=== PATIENT | female | born 1955 | race Caucasian/White ===

== ENCOUNTER → 2018-09-25 14:08 | Outpatient (BNVA) | payer MEDICARE, BC, SELFPAY | PROVIDERS: Referring Provider Nurse Practitioner Family; Visit Provider Orthopaedic Surgery | DX: S80.12XA Contusion of left lower leg, initial encounter (principal); X58.XXXA Exposure to other specified factors, initial encounter; M72.0 Palmar fascial fibromatosis [Dupuytren]; Z79.82 Long term (current) use of aspirin | CPT/HCPCS: 99211; 99213 ==

== ENCOUNTER 2018-10-24 12:35 | Outpatient (CLI) | payer MEDICARE, BC, SELFPAY ==
--- NOTE | 2018-10-24 10:49 | DI.RAD_ITS ---
SYMPTOMS/DIAGNOSIS: CONTINUED KNEE PAIN, S/P FALL, SWELLING LEFT KNEE: Three views were obtained. There appears to be soft tissue swelling over the patella. No fracture is identified.
== END 2018-10-24 12:55 ==
PROVIDERS: Visit Provider Orthopaedic Surgery
DX: M25.562 Pain in left knee (principal); S80.10XA Contusion of unspecified lower leg, initial encounter; W01.0XXA Fall on same level from slipping, tripping and stumbling without subsequent striking against object, initial encounter
CPT/HCPCS: 73562

== ENCOUNTER → 2018-10-29 09:22 | Outpatient (BNVA) | payer MEDICARE, BC, SELFPAY ==
--- NOTE | 2018-11-10 14:52 | IN_ITS ---
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 Patient was diagnosed with contusion of lower leg without any internal derangement found by orthopedic surgeon during most recent orthopedic follow up on 10/29/2018. 4 weeks prior to orthopedic follow up, patient seemed to have added insult to injury when she had to crawl on the floor to unplug 's CPAP machine. She reported increased pain and swelling which prompted patient to seek follow up with referring MD. Radiographic imaging of left knee showed negative for fracture. Patient also reports that she has been significantly busy at home and has been spending a lot of time in standing which may have slowed down resolution of symptoms. Today, patient presents with mild pain and almost resolved erythema to L ankle/dorsum of foot that are accompanied with mild to moderate non-pitting edema. PMHx: Medical Histroy Hyperlipidemia Hypertension Raynaud's disease Surgical History: Appendectomy Carpal tunnel Tonsillectomy Falls in the last year: Yes Reported hospitalizations in the last year: Yes Subjective: Patient reports mild pain on L ankle and foot aggravated with movement and weight-bearing. She states that said symptoms have limited her ability to move about in the house and to work in her garden. She states that weeding her garden has become the most challenging. She does state that pain and swelling have subsided but feels that they are taking a long time to fully resolve. She is agreeable to PT's recommendation of three sessions of manual lymphatic drainage to L LE, use of knee-high compression legging on the L side, and to doing remedial exercises to displace excess fluid accumulation off of the L foot and ankle. She states she has a lot more to do in the coming weeks and hopes that she can do so without any more difficulty. Prior Level of Function: Independent with all aspects of ADLs without the need for an assistive ambulatory device. Current Level of Function: Independent with all aspects of ADLs without the need for an assistive ambulatory device. Previous Treatment: None Social History/Home Situation: Patient lives with in a private home in [place], [place]. 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 DME: None Medications: Percocet Quality of Life: Good Standardized Measures: Lower Extremity Functional Scale (LEFS): 73/80 Objective: Posture: mild thoracic painkyphosis Observation: Mild erythema (almost resolved), swelling on L ankle and foot Palpation: Tone/hypertrophy: Unremarkable Atrophy: None Tenderness/Pain: L ankle and foot Scars: well-healed scar CT release scar Edema: Girth measurement done in cm R L Around MTP 23.7 23.2 Around arch of foot 23.2 23.5 Around heel 31 32.1 Smallest of ankle 22.4 24.8 5 cm above lat mal 23.3 10 cm above lat mal 22.7 Largest calf 36.4 2 inches below patellar apex 33.3 Length of leg 40 ROM: Right Upper Extremity: Shoulder Flexion WFL. Shoulder abduction WFL. Elbow flexion WFL. Wrist flexion WFL. Functional opening and closing of hand WFL. Left Upper Extremity: Shoulder Flexion WFL. Shoulder abduction WFL. Elbow flexion WFL. Wrist flexion WFL. Functional opening and closing of hand WFL. Right Lower Extremity: Hip flexion WFL. Hip abduction WFL. Knee flexion WFL. Ankle dorsiflexion WFL. Ankle plantarflexion WFL. Left Lower Extremity: Hip flexion WFL. Hip abduction WFL. Knee flexion WFL. Ankle dorsiflexion WFL but with mild pain at end of range. Ankle plantarflexion WFL but with mild pain at end of range. Strength: Right Upper Extremity: Shoulder flexors 5/5. Shoulder abductors 5/5. Elbow flexors 5/5. Elbow extensors 5/5. Local Government Legislator strong. Left Upper Extremity: Shoulder flexors 5/5. Shoulder abductors 5/5. Elbow flexors 5/5. Elbow extensors 5/5. Local Government Legislator strong. Right Lower Extremity: Hip flexors 5/5. Hip abductors 5/5. Knee flexors 5/5. Knee extensors 5/5. Ankle dorsiflexors 5/5. Ankle plantarflexors 5/5. Left Lower Extremity:Hip flexors 5/5. Hip abductors 5/5. Knee flexors 5/5. Knee extensors 5/5. Ankle dorsiflexors 4/5. Ankle plantarflexors 4/5. Sensation: Intact as to pain impression on BUE Special Tests Stemmer Sign: Negative ASSESSMENT: Patient with secondary lymphedema to left ankle and foot due to mechanical limitation exerted on the lymphatic and vascular flow placed by the presence of contusion to left knee with patient demonstrating the following impairment level findings: 1. Decreased strength to L ankle muscle groups 2. Impaired standing balance 3. Impaired activity tolerance Patient requires skilled PT intervention to remediate the above functional limitations to improve functional mobility and improve quality of life. Impairments are contributing to the following functional limitations: 1. Increase completion time for mobility ADL performance 2. Increased fall risk Patient is assessed as a [id number] low complexity based on the following: History: 63-year-old female with secondary lymphedema to left foot with past medical history as indicated above Examination: Underlying impairments and functional limitations as noted above Presentation: Evolving Decision Makin low complexity [X] Patient requires skilled PT intervention to remediate the above functional limitations to: [X] Improve functional mobility [X] Improve quality of life [] Patient does not required skilled PT intervention Goals: STG: after 1 sessions 1. Patient will be independent with skin care and hygiene. 2. Patient will be independent with elevation of the right LE for more than 30 minutes per day. 3. Patient will be independent with self-manual lymphatic drainage. 4. Patient will be independent with lymphedema home exercise program. 5. Patient will demonstrate resolution of pain and swelling to regain normal muscle strength in order to return to prior level of function. LTG: after 3 sessions 1. Patient will be independent with use of compression wraps or garments. 2. Patient will have decrease in edema of 1at least cm. 3. Patient will be independent with self-management program for lymphedema. Lymphedema Intervention Provided: 1. Skin care and hygiene: Advised about continuing with skin hygiene/care 2. Manual lymphatic drainage: MLD provided to L LE for this session 3. Compression: Trialled 15-20 mmHg knee-high compression legging to L side to be worn during the day and taken off at night 4. Exercise and elevation: Initiated with ankle dorsiflexion and plantarflexion today 5. Patient education: Instructed on the improtance of use of compression garments and on allowing extremity elevation at least 30 minutes a day Treatment code/time: 65624 x30 minutes, 79038 x 44 minutes beginning at 13:32 PM. Thank you for this referral. Please do not hesitate to contact me with any questions or concerns regarding this patient's plan of care. Tammy Bunch, PT, DPT, CLT [facility]
== END ==
PROVIDERS: Visit Provider Orthopaedic Surgery
DX: S80.12XA Contusion of left lower leg, initial encounter (principal); W01.0XXA Fall on same level from slipping, tripping and stumbling without subsequent striking against object, initial encounter; M25.562 Pain in left knee
CPT/HCPCS: 99211; 99213

== ENCOUNTER → 2019-04-27 13:18 | Outpatient (BNVA) | payer MEDICARE, BC, SELFPAY | PROVIDERS: PCP Nurse Practitioner Family; Referring Provider Nurse Practitioner Family; Visit Provider Student in an Organized Health Care Education/Training Program | DX: M77.11 Lateral epicondylitis, right elbow (principal); M75.21 Bicipital tendinitis, right shoulder | CPT/HCPCS: 20550; 99214; J1030 ==

== ENCOUNTER 2019-08-24 11:27 | Outpatient (CLI) | payer MEDICARE, BC, SELFPAY ==
--- NOTE | 2019-08-24 10:00 | DI.RAD_ITS ---
EXAM: XR KNEE RT 4V AP,LAT,ALICE,PAT CLINICAL HISTORY: right knee pain. TECHNIQUE: 2D digital imaging was performed. COMPARISON: CR XR knee LT 3V AP,lat,alice from 10/24/2018 FINDINGS: There is periarticular spurring of the posterior patella. The bones are normally mineralized and int act. No acute fracture or dislocation is seen no joint effusion is present. The soft tissues are un remarkable. IMPRESSION: Mild degenerative changes of the right knee. DATA REPOSITORY: RADIATION DOSE DELIVERED:
== END 2019-08-24 11:47 ==
PROVIDERS: PCP Nurse Practitioner Family; Referring Provider Nurse Practitioner Family; Visit Provider Student in an Organized Health Care Education/Training Program
DX: M25.561 Pain in right knee (principal); M17.11 Unilateral primary osteoarthritis, right knee; M77.12 Lateral epicondylitis, left elbow; Z98.890 Other specified postprocedural states
CPT/HCPCS: 99213; 73564

== ENCOUNTER → 2019-10-05 09:12 | Outpatient (BNVA) | payer MEDICARE, BC, SELFPAY | PROVIDERS: PCP Nurse Practitioner Family; Referring Provider Nurse Practitioner Family; Visit Provider Student in an Organized Health Care Education/Training Program | DX: M25.561 Pain in right knee (principal); M77.12 Lateral epicondylitis, left elbow; M77.11 Lateral epicondylitis, right elbow | CPT/HCPCS: 20605; 99214; J1030; L3908 ==

== ENCOUNTER 2019-12-07 11:18 | Outpatient (CLI) | payer MEDICARE, BC, SELFPAY ==
--- NOTE | 2019-12-07 10:45 | DI.RAD_ITS ---
EXAM: XR HIP LT COMPLETE AP PELVIS CLINICAL HISTORY: L hip pain. TECHNIQUE: 2D digital imaging was performed. COMPARISON: No exams were available for comparison FINDINGS: BONES: No acute fracture is present. No bony destructive lesion is seen. JOINTS: No dislocation present. SOFT TISSUE: Vascular calcifications are present. IMPRESSION: No acute abnormality. DATA REPOSITORY: RADIATION DOSE DELIVERED:
== END 2019-12-07 11:38 ==
PROVIDERS: PCP Nurse Practitioner Family; Referring Provider Nurse Practitioner Family; Visit Provider Student in an Organized Health Care Education/Training Program
DX: M25.552 Pain in left hip (principal)
CPT/HCPCS: 99214; 73502

== ENCOUNTER 2019-12-10 02:06 | Outpatient (CLI) | payer MEDICARE, BC, SELFPAY ==
--- NOTE | 2019-12-10 12:35 | DI.RAD_ITS ---
EXAM: RF JOINT INJECTION FLUORO GUID CLINICAL HISTORY: L HIP INJ UNDER FLUORO,lt hip pain,m25.552 TECHNIQUE: 2D and realtime digital imaging was performed. CONTRAST MATERIAL: Water soluble contrast was administered. COMPARISON: No exams were available for comparison FINDINGS: Fluoroscopy was provided for Dr. Mckay during the performance of a left hip 155 . Please refer t o the procedure report for complete details. Fluoro time: 15 sec
[2019-12-10] MEDS: Omnipaque 300 MG/ML 10 ML BTL IJ (12:54)
[2019-12-10] MEDS: Bupivacaine 0.5% Pres-Free 10 ML VIAL 6 ML IJ (12:56)
[2019-12-10] MEDS: methylPREDNISolone ACETATE 80 MG/ML VIAL IM (12:57)
--- NOTE | 2019-12-10 14:05 | W.PROCNOTE ---
Date of service: 12/10/19 Time of Service: 14:05 Procedure Note Date of procedure: 12/10/19 Procedure: Left Hip Injection with Fluoroscopic Guidance Surgeon/Proceduralist/Physician: Scott Mckay Procedure Diagnosis: Left Hip Osteoarthritis Procedure Indications: Ca has had persistent pain of the LEFT hip and groin. Noninvasive measures have been tried. To serve as both diagnostic and therapeutic, an injection under fluoroscopy was recommended. I had discussed the risks of the procedure and the patient elected to proceed. Procedure Description: Ca was greeted in the flouroscopy room. The correct side was identified and the consent was reviewed with the patient and signed. The patient was then placed in the supine position on the fluoroscopy table. The LEFT hip was then prepped with Chloraprep. The anterolateral injection starting point was identiifed by bony landmarks and fluoroscopy. The skin and soft tissue in the tract of the injection was anesthetized with 1% Lidocaine. A spinal needle was then inserted deep into the hip joint at the level of the lateral femoral neck under fluoroscopic guidance. A small amount of Omnipaque solution was injected to confirm intraarticular placement. Once confirmed, the hip was injected with 6cc of 0.5% Bupivicaine and 80mg of Depo-Medrol. A bandaid was placed on the injection site. The patient tolerated the procedure well and noted improvement in pre-injection pain.
== END 2019-12-10 02:26 ==
PROVIDERS: PCP Nurse Practitioner Family; Visit Provider Student in an Organized Health Care Education/Training Program
DX: M25.552 Pain in left hip (principal); M16.12 Unilateral primary osteoarthritis, left hip
CPT/HCPCS: 20610; 77002; J1040

== ENCOUNTER 2019-12-29 12:01 | Emergency (ER) | payer MEDICARE, BC, SELFPAY ==
[2019-12-29 12:07] VITALS: BP 160/86; PULSE 76; RESP 16; TEMP 36.6; O2SAT 98
--- NOTE | 2019-12-29 12:15 | DI.RAD_ITS ---
EXAM: XR KNEE LT 3V AP,LAT,ALICE CLINICAL HISTORY: Fall, R/O fracture. TECHNIQUE: 2D digital imaging was performed. COMPARISON: CR XR KNEE RT 4V AP,LAT,ALICE,PAT from 08/24/2019 FINDINGS: BONES: No acute fracture is present. No bony destructive lesion is seen. JOINTS: The knee is normally aligned. Mild degenerative changes. SOFT TISSUE: There is mild anterior soft tissue swelling question of a small joint effusion. IMPRESSION: No acute abnormality.. DATA REPOSITORY: RADIATION DOSE DELIVERED:
--- NOTE | 2019-12-29 12:15 | DI.RAD_ITS ---
EXAM: XR RIBS RT W PA LAT CHEST CLINICAL HISTORY: Fall, R/o fracture TECHNIQUE: 2D digital imaging was performed. COMPARISON: CR RIBS BILATERAL TO INCLUDE CXR from 05/10/2010 FINDINGS: The heart size is normal. The aorta is tortuous. The lungs are well inflated and clear. No infiltr ate, effusion or pneumothorax is seen. No acute spine or rib fracture is identified. There are old right lower rib fractures, seen on the previous exam. Degenerative disc changes are seen in the spin e. IMPRESSION: Old right lower rib fractures. No acute abnormality.
--- NOTE | 2019-12-29 12:15 | DI.RAD_ITS ---
EXAM: XR LUMBAR SPINE COMPLETE CLINICAL HISTORY: Fall. TECHNIQUE: 2D digital imaging was performed. COMPARISON: CR RIBS BILATERAL TO INCLUDE CXR from 05/10/2010 CR XR RIBS RT W PA LAT CHEST from 12/29/2019 FINDINGS: There is narrowing of the T11-12 disc space and prominent osteophytes projecting anteriorly. There i s mild disc space narrowing at L2-3 through L5-S1. There are facet degenerative changes greatest at L4-5 causing mild L5-S1 spondylolisthesis. No acute fractures are seen. There is a mild upper lumba r scoliosis. Degenerative changes are seen in the SI joints. There is calcification in the aorta wh ich is normal in diameter. IMPRESSION: Degenerative changes. No acute abnormality. DATA REPOSITORY: RADIATION DOSE DELIVERED:
--- NOTE | 2019-12-29 12:34 | ED.GENADUL_ITS ---
Discharge Plan Disposition Patient Disposition: HOME Condition: Stable Discharge Details Clinical Impression: Fall (on) (from) other stairs and steps, initial encounter, Left knee sprain, Chest wall contusion Primary Care Provider: Yi Mcintyre ED Provider: Jeannie Mejia Home Meds and New Rx's Prescriptions: Continued gabapentin 300 mg capsule 300 mg PO QHS Qty: 14 RF: 0 tramadol 50 mg tablet 50 mg PO BID PRN (Reason: pain) Qty: 14 RF: 0 atorvastatin [Lipitor] 40 MG tablet 40 mg PO DAILY RF: 0 ascorbic acid (vitamin C) [Vitamin C] 1,000 MG tablet 1 tab PO DAILY RF: 0 calcium carbonate [Calcium 500] 500 MG tablet 1,000 mg PO DAILY RF: 0 estradiol 0.5 MG tablet 0.5 mg PO DAILY RF: 0 Fish Oil 1 EACH capsule,delayed release(DR/EC) 1 tab PO DAILY RF: 0 Fiber 6 1,000 MG tablet 1 tab PO DAILY RF: 0 Cyanocobalamin (Vitamin B-12) [Vitamin B-12] 1,000 MCG capsule 1 cap PO DAILY RF: 0 Topiramate [Trokendi Xr] 50 MG Cap.Er.24h 50 mg PO DAILY RF: 0 aspirin [Aspir-81] 81 mg tablet,delayed release (DR/EC) 81 mg PO .QOD RF: 0 propranolol 40 mg tablet 20 mg PO BID RF: 0 progesterone micronized [Prometrium] 200 mg capsule 100 mg PO DAILY RF: 0 Discharge Instructions Instructions: Knee Sprain (ED), Contusion in Adults (ED) Additional Instructions: Follow up with primary care provider in 3-5 days. Return to ED sooner if any worsening or concerns. Increase oral fluids. Please take Tylenol or Ibuprofen with food every 4-6 hours as needed for pain and swelling. Use splint as directed, rest, ice, compression, elevation. Return for increased shortness of breath or any concerns. May follow-up with orthopedics within 1 to 2 weeks if continued pain. [facility]: Referrals: Yi Mcintyre [Primary Care Provider] - Discharge Data Discharge Date/Time-TO BE ENTERED AT DEPARTURE: 12/29/19 14:00 Medical Decision Making 64-year-old female presents to the ED with chief complaint of left knee pain, lower lumbar tenderness after a fall down approximately 5 stairs at 7:30 PM last night. Patient did hit the back of her head and has a small hematoma noted to her right parietal scalp, she denies any loss of consciousness no C-spine no midline T-spine tenderness. She does have some swelling noted to the left knee, she does have multiple contusions noted to her arms, she has a contusion noted to the posterior right rib cage and is tender with palpation over the area. She does take baby aspirin daily. CLINICAL HISTORY: Fall, R/O fracture. TECHNIQUE: 2D digital imaging was performed. COMPARISON: CR XR KNEE RT 4V AP,LAT,ALICE,PAT from 08/24/2019 FINDINGS: BONES: No acute fracture is present. No bony destructive lesion is seen. JOINTS: The knee is normally aligned. Mild degenerative changes. SOFT TISSUE: There is mild anterior soft tissue swelling question of a small joint effusion. IMPRESSION: No acute abnormality.. TECHNIQUE: 2D digital imaging was performed. COMPARISON: CR RIBS BILATERAL TO INCLUDE CXR from 05/10/2010 CR XR RIBS RT W PA LAT CHEST from 12/29/2019 FINDINGS: There is narrowing of the T11-12 disc space and prominent osteophytes projecting anteriorly. There is mild disc space narrowing at L2-3 through L5-S1. There are facet degenerative changes greatest at L4-5 causing mild L5-S1 spondylolisthesis. No acute fractures are seen. There is a mild upper lumbar scoliosis. Degenerative changes are seen in the SI joints. There is calcification in the aorta which is normal in diameter. IMPRESSION: Degenerative changes. No acute abnormality. EXAM: XR RIBS RT W PA LAT CHEST CLINICAL HISTORY: Fall, R/o fracture TECHNIQUE: 2D digital imaging was performed. COMPARISON: CR RIBS BILATERAL TO INCLUDE CXR from 05/10/2010 FINDINGS: The heart size is normal. The aorta is tortuous. The lungs are well inflated and clear. No infiltrate, effusion or pneumothorax is seen. No acute spine or rib fracture is identified. There are old right lower rib fractures, seen on the previous exam. Degenerative disc changes are seen in the spine. IMPRESSION: Old right lower rib fractures. No acute abnormality. Discussed x-ray results with patient who verbalized understanding. Discussed taking Tylenol and ibuprofen as directed. Follow-up with orthopedics if any worsening. HPI General Mode of arrival: wheelchair . Date/Time Provider Initiated Documentation: 12/29/19 12:07 . Limitations to Documentation: no limitations . Information obtained by: patient . HPI Narrative: 64-year-old female presents to the ED with chief complaint of left knee pain, lower lumbar tenderness after a fall down approximately 5 stairs at 7:30 PM last night. Patient did hit the back of her head and has a small hematoma noted to her right parietal scalp, she denies any loss of consciousness no C-spine no midline T-spine tenderness. She does have some swelling noted to the left knee, she does have multiple contusions noted to her arms, she has a contusion noted to the posterior right rib cage and is tender with palpation over the area. She does take baby aspirin daily. Related Data Home Medications Medication Instructions Recorded Confirmed Cyanocobalamin (Vitamin B-12) 1 cap PO DAILY 06/04/17 12/29/19 [Vitamin B-12] Fiber 6 1 tab PO DAILY 06/04/17 12/29/19 Fish Oil 1 tab PO DAILY 06/04/17 12/29/19 Topiramate [Trokendi Xr] 50 mg PO DAILY 06/04/17 12/29/19 ascorbic acid (vitamin C) [Vitamin 1 tab PO DAILY 06/04/17 12/29/19 C] atorvastatin [Lipitor] 40 mg PO DAILY 06/04/17 12/29/19 calcium carbonate [Calcium 500] 1,000 mg PO DAILY 06/04/17 12/29/19 estradiol 0.5 mg PO DAILY 06/04/17 12/29/19 aspirin 81 mg tablet,delayed 81 mg PO .QOD tab 04/27/19 12/29/19 release propranolol 40 mg tablet 20 mg PO BID tab 04/27/19 12/29/19 gabapentin 300 mg capsule 300 mg PO QHS #14 cap 12/07/19 12/29/19 progesterone micronized 200 mg 100 mg PO DAILY cap 12/07/19 12/29/19 capsule tramadol 50 mg tablet 50 mg PO BID PRN #14 tab 12/07/19 12/29/19 Previous Rx's Medication Instructions Recorded gabapentin 300 mg capsule 300 mg PO QHS #14 cap 12/07/19 tramadol 50 mg tablet 50 mg PO BID PRN #14 tab 12/07/19 Allergies Allergy/AdvReac Type Severity Reaction Status Date / Time oxycodone Allergy Mild Hives Unverified 12/29/19 12:15 oxycodone HCl [From Percocet] Allergy Mild Hives Unverified 12/29/19 12:15 General Stated Complaint: Trauma JORDAN: 3 Review of Systems Narrative: Constitutional: Negative for weight loss, alert and oriented, well groomed, normal body habitus, appears comfortable. HEENT: Denies trauma, headaches, blurry vision, nasal discharge, sore throat, trouble swallowing. Chest: Denies chest pain, palpitations, irregular rhythm, hypertension. Respiratory: Denies Shortness of breath, cough, hemoptysis. GI: Denies abdominal pain, nausea, vomiting, diarrhea, constipation. Musculoskeletal: As noted in HPI, complaining of lower lumbar tenderness, right- sided rib pain, left knee pain. : Denies dysuria, hematuria, flank pain, rectal bleeding. Neuro: Denies dizziness, blurry vision, weakness, syncope, headache or facial numbness. Hematologic: Denies easy bruising, intolerance to heat or cold, hair loss. [facility] Medical History (Updated 12/29/19 @ 13:44 by Jeannie Mejia) Lateral epicondylitis of left elbow Patellofemoral arthritis of right knee Social History Smoking/Tobacco Use Status: Current every day Alcohol Intake: current Alcohol Intake frequency: 3 or more drinks per day Alcohol type: wine Drug use: Never Substance use type: does not use Current gender identity: female Do you feel safe in your relationship?: Yes Additional Social history: pt unable to assess privately Exam Narrative Exam Narrative: Constitutional: Alert and oriented x3. Appears stated age. Normal body habitus. Head: Normocephalic, no trauma. Eyes: Pupils PERRLA, Red reflex noted, EOM's intact. Eyelids symmetrical without lesions, discharge, or swelling. ENT: Bilateral TM's WNL, External ear normal to inspection, no mastoid TTP, swelling, or erythema, Nasal turbinates WNL, no nasal discharge. Normal dentition, Posterior pharynx WNL, no exudate. Chest: RRR, Normal S1, S2, distal pulses intact. Resp: Lungs clear to auscultation bilaterally, no wheezes, rales, or rhonchi. Musculoskeletal: Left knee tenderness, positive swelling noted, lower lumbar tenderness with palpation, right rib cage tenderness. Skin: Capillary refill less than 2 sec. Neurologic: Cranial nerves II-XII intact. Alert and oriented x 3. DTR's intact. Hematologic/Lymphatic: No ecchymosis, no lymphadenopathy. Course Vital Signs Vital signs: Vital Signs Temperature 36.6 C 12/29/19 12:07 Pulse 76 12/29/19 12:07 Respiratory Rate 16 12/29/19 12:07 Blood Pressure 160/86 H 12/29/19 12:07 Pulse Oximetry 98 12/29/19 12:07 Temperature 36.6 C 12/29/19 12:07 Temperature Source Skin 12/29/19 12:07 Pulse 76 12/29/19 12:07 Respiratory Rate 16 12/29/19 12:07 Respiratory Effort Non-Labored 12/29/19 12:27 Respiratory Depth Normal 12/29/19 12:27 Respiratory Pattern Normal 12/29/19 12:27 Blood Pressure 160/86 H 12/29/19 12:07 Blood Pressure Position Sitting 12/29/19 12:07 Pulse Oximetry 98 12/29/19 12:07 Oxygen Delivery Method Room Air 12/29/19 12:07 Oxygen Flow Rate 0 12/29/19 12:07 Pain Level 10 12/29/19 12:27
[2019-12-29] MEDS: Cyclobenzaprine 10 MG TAB PO (12:38)
[2019-12-29] MEDS: Acetaminophen 325 MG TAB 650 MG PO (12:38)
== END 2019-12-29 14:00 | disposition home or self-care (01) ==
PROVIDERS: Emergency Provider Registered Nurse Emergency; PCP Nurse Practitioner Family
DX: S83.8X2A Sprain of other specified parts of left knee, initial encounter (principal); S20.221A Contusion of right back wall of thorax, initial encounter; S00.03XA Contusion of scalp, initial encounter; S50.11XA Contusion of right forearm, initial encounter; W10.8XXA Fall (on) (from) other stairs and steps, initial encounter
CPT/HCPCS: 73562; 99284; 71046; 71100; 72110; L1810

== ENCOUNTER 2020-01-11 02:33 | Outpatient (CLI) | payer MEDICARE, BC, SELFPAY ==
--- NOTE | 2020-01-11 09:00 | NS.NUTBLAN_ITS ---
ASSESSMENT: Ca (64 y/o Female) presents for new dx DM2 and referral from [facility].She has hx pre DM with slightly elevated BG dating from 2014 to present. Today she reported no breakfast or H2O and fingerstick revealed BG 154. She had a recent fall and was at [facility] ER last week which caused her to cancel her original nutrition appointment on Dec. She stated that she does not have a glucometer and needs basic education about the disease and self management techniques. She is not on any DM meds at this time which this RD reiterated was a good starting point and that we could plan food and BG monitoring as first steps to self management. Ca stated that she does not breakfast ( only black coffee) and skips lunch, eating only supper meals. Hydration and appropriate amounts of nutrients in regular increments would be beneficial to her moving forward. INTERVENTION: Explained basic CHO counting and provided literature. Reviewed glycogen conversion in the liver r/t inadequate CHO and other nutrient intake causing elevated BG levels as evidenced by 154 mg/dl reading at 0930. Explained CHO and Pro pairing to help with BG spikes and provided take home examples. Gave guidelines for and encouraged adequate fluid intake. Demonstrated and witnessed patient perform fingerstick procedure successfully. Informed Ca on how to acquire glucometer and strips through PCP and gave her desirable BG guidelines reference chart. Reviewed s/s hypo/hyperglycemia and provided literature.Demonstrated [employer] mk for phone to help with CHO counting. Recommended <60g CHO per meal period to help max time in range. MONITOR and EVAL: Ca will need f/u session with dietitian/ electronic lab technician to work on DM self management techniques. She agreed to speak to PCP and obtain glucometer. Ca agreed to check her BG levels 3X/day for two days then 1x/day alternating postprandial and fasting. This RD provided contact information to arrange for f/u appointment and answer any questions r/t meal planning and SBGM.
== END 2020-01-11 02:53 ==
PROVIDERS: PCP Nurse Practitioner Family; Visit Provider Dietitian, Registered
DX: M47.816 Spondylosis without myelopathy or radiculopathy, lumbar region (principal); M54.16 Radiculopathy, lumbar region
CPT/HCPCS: 97802; 99214

== ENCOUNTER 2020-01-20 01:20 | Outpatient (CLI) | payer MEDICARE, BC, SELFPAY ==
--- NOTE | 2020-01-20 08:00 | DI.MRI_ITS ---
EXAM: MR LUMBAR SPINE WO CLINICAL HISTORY: lumbar radiculopathy, pain, lumbar spondylosis,m47.816,m54.16. TECHNIQUE: Multiplanar multisequence MRI of the Lumbar spine was performed. COMPARISON: No exams were available for comparison FINDINGS: Bones: The last intervertebral disc space is designated the L5/S1 level for the numbering purpose of this examination. The vertebral body heights are well maintained. Grade 1 pseudo spondylolisthesis of L4 on L5 is noted. Endplate degenerative signal changes are seen in several lower thoracic and sveta mbar spine levels. Cord: The conus tip ends at the L1 level. It is of normal size and signal intensity. L1-L2: No disc herniations or bulges are present. No central spinal canal or neural foraminal stenosi s. L2-L3: Mild diffuse disc bulge. Endplate degenerative signal changes. Degenerative changes of the f acets. Mild narrowing of the central spinal canal.Mild bilateral neural foraminal narrowing. L3-L4: Diffuse disc bulge. Degenerative changes of the facets. Marked central spinal canal stenosis .Mild bilateral neural foraminal narrowing. Left greater than right. L4-L5: Diffuse disc bulge. Degenerative changes of the facets and ligamentum flavum hypertrophy. Ma rked central spinal canal stenosis.Moderate bilateral neural foraminal stenosis. L5-S1: Diffuse disc bulge. No central spinal canal stenosis.Moderate right neural foraminal stenosis . Mild left neural foraminal stenosis. Soft tissues: The visualized SI joints and sacrum are well maintained. The paraspinal soft tissues ar e unremarkable. IMPRESSION: Multilevel degenerative changes throughout the lumbar spine resulting in central spinal canal and hans ral foraminal stenosis. Please see the above discussion for complete details. DATA REPOSITORY:
== END 2020-01-20 01:40 ==
PROVIDERS: PCP Nurse Practitioner Family; Visit Provider Student in an Organized Health Care Education/Training Program
DX: M47.26 Other spondylosis with radiculopathy, lumbar region (principal); M48.061 Spinal stenosis, lumbar region without neurogenic claudication
CPT/HCPCS: 72148

== ENCOUNTER → 2020-02-04 11:08 | Outpatient (BNVA) | payer MEDICARE, BC, SELFPAY | PROVIDERS: PCP Nurse Practitioner Family; Referring Provider Nurse Practitioner Family; Visit Provider Student in an Organized Health Care Education/Training Program | DX: M47.816 Spondylosis without myelopathy or radiculopathy, lumbar region (principal); M48.062 Spinal stenosis, lumbar region with neurogenic claudication | CPT/HCPCS: 99213 ==

== ENCOUNTER 2021-03-03 01:08 | Outpatient (CLI) | payer MEDICARE, BC, SELFPAY ==
--- NOTE | 2021-03-03 09:30 | DI.DEXA_ITS ---
Exam(s) XR DEXA BONE DENSITY W/WO ROSENDO EXAM: XR DEXA BONE DENSITY W/WO ROSENDO CLINICAL HISTORY: ESTROGEN DEFICIENCY, E28.39 TECHNIQUE: COMPARISON: No exams were available for comparison FINDINGS: Lateral Spine Image: Unremarkable. No compression deformities identified. Grade 1 anterolisthesis of L4 on L5. Left hip: Total T-Score: -0.9 Total Z-Score: 0.5 T- and Z-scores: Within normal limits. Lumbar Spine: Total T-Score: 0.0 Total Z-Score: 2.0 T- and Z-scores: Within normal limits. IMPRESSION: No evidence of osteoporosis.
== END 2021-03-03 01:28 ==
PROVIDERS: PCP Nurse Practitioner Family; Visit Provider Nurse Practitioner Family
DX: E28.39 Other primary ovarian failure (principal); Z13.820 Encounter for screening for osteoporosis
CPT/HCPCS: 77080

== ENCOUNTER → 2021-09-22 00:22 | Outpatient (CLI) | payer MEDICARE, BC, SELFPAY ==
--- NOTE | 2021-09-22 | DI.RAD_ITS ---
Exam(s) XR LUMBAR SPINE AP, LAT EXAM: XR LUMBAR SPINE AP, LAT CLINICAL HISTORY: M48.061, SPINAL STENOSIS, HIP PAIN, M25.552,M25.551. TECHNIQUE: 2D digital imaging was performed. Three views. COMPARISON: CR XR DEXA BONE DENSITY W/WO ROSENDO from 03/03/2021 FINDINGS: BONES: No fracture or destructive lesion. Vertebral bodies are unremarkable. There are small endplate osteophytes, greater in the lower thoracic level. There is mild disc space narrowing from L 2 3 thr ough L5-S1. Facet degenerative changes are prominent at L4-5 and L5-S1. ALIGNMENT: Slight L4-5 spondylolisthesis secondary to facet degenerative changes. SOFT TISSUE: Calcification in the distal abdominal aorta IMPRESSION: Degenerative disc changes and facet degenerative changes from L2-3 through L5-S1. DATA REPOSITORY: RADIATION DOSE DELIVERED:
--- NOTE | 2021-09-22 | DI.RAD_ITS ---
Exam(s) XR HIP PELVIS ADULT BL EXAM: XR HIP PELVIS ADULT BL CLINICAL HISTORY: BILAT HIP PAIN, M25.552,M25.551. TECHNIQUE: 2D digital imaging was performed. Three views COMPARISON: CR XR HIP LT COMPLETE AP PELVIS from 12/07/2019 FINDINGS: BONES: No acute fracture is present. No bony destructive lesion is seen. Enthesophytes are noted at t he iliac wings and greater trochanters. JOINTS: No dislocation present. Mild bilateral acetabular spurring. Mild spurring at the SI joints . SOFT TISSUE: Normal. IMPRESSION: Mild degenerative changes. DATA REPOSITORY: RADIATION DOSE DELIVERED:
== END ==
PROVIDERS: PCP Nurse Practitioner Family; Visit Provider Nurse Practitioner Primary Care
DX: M48.061 Spinal stenosis, lumbar region without neurogenic claudication (principal); M25.551 Pain in right hip; M25.552 Pain in left hip; M47.817 Spondylosis without myelopathy or radiculopathy, lumbosacral region
CPT/HCPCS: 73521; 72100

== ENCOUNTER 2021-10-29 22:15 | Emergency (ER) | payer MEDICARE, BC, SELFPAY ==
[2021-10-29 22:22] VITALS: BP 138/72; PULSE 57; RESP 18; TEMP 36.5; O2SAT 100
--- NOTE | 2021-10-29 22:34 | ED.GENADUL_ITS ---
Discharge Plan Disposition Patient Disposition: HOME Condition: Improving Discharge Details Clinical Impression: Head injury, Fall, Skin tear of left upper extremity Primary Care Provider: NIDIA MARTINO ED Provider: Eleuterio Ha Home Meds and New Rx's Prescriptions: Continued lisinopril 5 mg tablet 1 tab PO DAILY Combivent Respimat 20-100 mcg/actuation mist 1 spray INHALATION BID atorvastatin [Lipitor] 40 MG tablet 40 mg PO DAILY ascorbic acid (vitamin C) [Vitamin C] 1,000 MG tablet 1 tab PO DAILY calcium carbonate [Calcium 500] 500 MG tablet 1,000 mg PO DAILY estradiol 0.5 MG tablet 0.5 mg PO DAILY Fish Oil 1 EACH capsule,delayed release(DR/EC) 1 tab PO DAILY Topiramate [Trokendi Xr] 50 MG Cap.Er.24h 50 mg PO DAILY aspirin [Aspir-81] 81 mg tablet,delayed release (DR/EC) 81 mg PO .QOD propranolol 40 mg tablet 20 mg PO BID progesterone micronized [Prometrium] 200 mg capsule 100 mg PO DAILY Discharge Instructions Instructions: Head Injury (ED), Skin Tear (ED) Additional Instructions: CT imaging was unremarkable. The abrasions and skin tears were appropriately cleaned, approximated and dressed. Keep them clean and dry and you may change the dressings daily. Steri-Strips will come off on their own in approximately 7-10 days. Tetanus status was updated. Please watch for new or worsening symptoms and return to the ER for any concerns. Lastly, please contact your primary care provider office tomorrow to discuss your ER visit and need for outpatient reevaluation. Medical Decision Making 66-year-old female who denies significant past medical history, not antic oagulated, admits to 1-2 glasses of wine this evening had a mechanical fall falling backwards trying to catch her self on the banister and then subsequently sliding down 10 steps. She believes that she struck her head when she reached the bottom of the stairs and sustained skin tears to both arms but denies any LOC, headache, neck pain, chest pain, shortness of breath, abdominal pain, nausea vomiting, numbness, tingling, weakness. Tetanus status is greater than 5 years ago. Will update tetanus status, will clean the abrasions and dressed, will clean skin tear and repair with Steri-Strips. Will obtain CT of head and C spine Abrasions cleaned and dressed. Skin tear cleaned and approximated using Steri- Strips. Then dressed. Patient tolerated well. Awaiting CT imaging. Patient resting comfortably CT imaging of head and C-spine are normal Standard discharge and return precautions were provided. Patient understands, is agreeable to this plan, and has no additional questions or concerns upon discharge. This documentation was generated using kaufDAation system, please disregard any oddities of phrase or misspellings. Medical Records Medical records reviewed: Yes I reviewed the patient's medical records. Imaging Data Radiologic Study: Attestation: I personally reviewed and interpreted this imaging study as follows: Imaging: CT Scan Radiologist's impression: PROCEDURE INFORMATION: Exam: CT Head Without Contrast Exam date and time: 10/29/2021 11:19 PM Age: 66 years old Clinical indication: Injury or trauma; Blunt trauma (contusions or hematomas); Consciousness not specified; Injury date: 10/29/21; Injury details: Fall downstairs TECHNIQUE: Imaging protocol: Computed tomography of the head without contrast. Radiation optimization: All CT scans at this facility use at least one of these dose optimization techniques: automated exposure control; mA and/or kV adjustment per patient size (includes targeted exams where dose is matched to clinical indication); or iterative reconstruction. COMPARISON: SINUS CT WITHOUT CONTRAST 03/26/2017 2:58 PM FINDINGS: Brain: Mild volume loss No hemorrhage.Moderate white matter disease No mass effect. Cerebral ventricles: No ventriculomegaly. Paranasal sinuses: Visualized sinuses are unremarkable. No fluid levels. Mastoid air cells: Visualized mastoid air cells are well aerated. Bones/joints: Unremarkable. No acute fracture. Soft tissues: Unremarkable. IMPRESSION: No acute intracranial hemorrhage == PROCEDURE INFORMATION: Exam: CT Cervical Spine Without ContrastExam date and time: 10/29/2021 11:19 PM Age: 66 years old Clinical indication: Injury or trauma; Blunt trauma (contusions or hematomas); Consciousness not specified; Injury date: 10/29/21; Injury details: Fall downs tairs TECHNIQUE: Imaging protocol: Computed tomography of the cervical spine without contrast. Radiation optimization: All CT scans at this facility use at least one of these dose optimization techniques: automated exposure control; mA and/or kV adjustment per patient size (includes targeted exams where dose is matched to clinical indication); or iterative reconstruction. COMPARISON: SINUS CT WITHOUT CONTRAST 03/26/2017 2:58 PM FINDINGS: Bones/joints: No acute fracture. Loss of cervical lordosis is presumably on a degenerative basis. Discs/Spinal canal/Neural foramina: Multilevel central canal and foraminal stenosis noted Lungs: Mild emphysema Soft tissues: Unremarkable. IMPRESSION: No acute cervical fracture noted HPI General Mode of arrival: ambulatory . Date/Time Provider Initiated Documentation: 10/29/21 22:16 . Limitations to Documentation: no limitations . Information obtained by: patient and family . History of Present Illness 66 year old F presents to the emergency department with the chief complaint of Fall, arm pain, described as moderate, with intensity rated at 4. Quality is described as aching, and is localized to the left, right and upper extremity. Patient reports no radiation. Patient started experiencing this hour(s) (1) and it has been constant. No relieving factors improve symptom(s), Movement worsens symptoms . Patient notes no other symptoms.. Patient did receive the following treatments prior to arrival, none Related Data Home Medications Medication Instructions Recorded Confirmed Topiramate [Trokendi Xr] 50 mg PO DAILY 06/04/17 02/04/20 ascorbic acid (vitamin C) 1,000 mg 1 tab PO DAILY 06/04/17 10/29/21 tablet (Vitamin C) atorvastatin 40 mg tablet (Lipitor) 40 mg PO DAILY 06/04/17 10/29/21 calcium carbonate 500 mg calcium 1,000 mg PO DAILY 06/04/17 10/29/21 (1,250 mg) tablet (Calcium 500) estradiol 0.5 mg tablet 0.5 mg PO DAILY 06/04/17 10/29/21 omega 0-yod-iog-fish oil 900 1 tab PO DAILY 06/04/17 10/29/21 mg-1,400 mg capsule,delayed release (Fish Oil) aspirin 81 mg tablet,delayed 81 mg PO .QOD 04/27/19 10/29/21 release (Aspir-) propranolol 40 mg tablet 20 mg PO BID 04/27/19 10/29/21 progesterone micronized 200 mg 100 mg PO DAILY 12/07/19 10/29/21 capsule (Prometrium) ipratropium 20 mcg-albuterol 100 1 spray inhalation BID 10/29/21 10/29/21 mcg/actuation mist for inhalation (Combivent Respimat) lisinopril 5 mg tablet 1 tab PO DAILY 10/29/21 10/29/21 Allergies Allergy/AdvReac Type Severity Reaction Status Date / Time oxycodone Allergy Mild Hives Unverified 10/29/21 22:31 oxycodone HCl [From Percocet] Allergy Mild Hives Unverified 10/29/21 22:31 General Stated Complaint: Trauma JORDAN: 4 Review of Systems Constitutional Constitutional: Denies headache(s) and Denies weakness Eyes Eyes: Denies change in vision ENT Ears, Nose, Mouth, and Throat: Denies headache(s) and Denies neck pain Cardiovascular Cardiovascular: Denies chest pain and Denies dyspnea Respiratory Respiratory: Denies dyspnea Gastrointestinal Gastrointestinal: Denies abdominal pain, Denies nausea and Denies vomiting Musculoskeletal Musculoskeletal: Denies back pain, Denies neck pain, Denies numbness and Denies tingling Neurologic Neurologic: Denies headache(s), Denies numbness, Denies tingling and Denies weakness Hematologic/Lymphatic Hematologic/Lymphatic: Denies easy bleeding and Denies easy bruising PFSH All Active Problems (Updated 10/29/21 @ 23:37 by SHERRI Yousif) Head injury (Acute) Fall (Acute) Skin tear of left upper extremity (Acute) Lumbar spinal stenosis (Acute) Lumbar radiculopathy (Acute) Lumbar spondylosis (Acute) Left hip pain (Acute) Patellofemoral arthritis of right knee (Acute) Lateral epicondylitis of left elbow (Acute) Biceps tendinitis of right shoulder (Acute) Lateral epicondylitis of right elbow (Acute) Hematoma of lower leg (Acute) Medical History Chronic rhinitis (03/21/17) Social History Smoking/Tobacco Use Status: Current every day Smoking risk assessment performed?: Yes Alcohol Intake: current Alcohol Intake frequency: 3 or more drinks per day Alcohol type: wine Drug use: Never Substance use type: does not use Current gender identity: female Do you feel safe in your relationship?: Yes Additional Social history: pt unable to assess privately Exam Const General: cooperative, healthy appearing, comfortable and no acute distress Orientation: alert, awake and oriented x3 [facility] Head: normal to inspection, normocephalic and atraumatic Ears: hearing grossly normal bilaterally General nose exam: external nose normal Face and sinus: normal facial exam Mouth: moist mucous membranes Throat: posterior oropharynx normal Eyes General: appearance normal, both eyes and all related structures Conjunctivae: conjunctivae normal Neck Neck: normal visual inspection, full ROM, trachea midline, supple and nontender Resp Effort & Inspection: normal respiratory effort and able to speak in complete sentences Auscultation: clear to auscultation bilaterally Cardio Rate: regular rate Rhythm: regular rhythm GI Palpation: soft and nontender Back/Spine/Pelvis Back: no CVA tenderness and No back tenderness Skin General skin exam: no rashes or lesions noted Neuro General: patient alert, patient awake, patient oriented x3, moves all extremities and no focal motor deficits Cranial Nerves: CN's II-XI intact bilaterally Cognition: normal cognition Speech: speech normal Gait: normal gait Motor: muscle tone normal throughout Sensory Exam: no sensory deficits noted Extrem General: full ROM and capillary refill normal Elbow/forearm/wrist images: 1. Abrasion 2. Abrasion 3. 5 cm skin tear Psych Appearance: grossly normal Mental Status: mental status grossly normal Course Vital Signs Vital signs: Vital Signs Temperature 36.5 C 10/29/21 22:22 Pulse 57 L 10/29/21 22:22 Respiratory Rate 18 10/29/21 22:22 Blood Pressure 138/72 10/29/21 22:22 Pulse Oximetry 100 10/29/21 22:22 Temperature 36.5 C 10/29/21 22:22 Temperature Source Temporal Artery Scan 10/29/21 22:22 Pulse 57 L 10/29/21 22:22 Respiratory Rate 18 10/29/21 22:22 Respiratory Effort Non-Labored 10/29/21 22:29 Respiratory Depth Normal 10/29/21 22:29 Respiratory Pattern Normal 10/29/21 22:29 Blood Pressure 138/72 10/29/21 22:22 Blood Pressure Position Sitting 10/29/21 22:22 Pulse Oximetry 100 10/29/21 22:22 Oxygen Delivery Method Room Air 10/29/21 22:22 Oxygen Flow Rate 0 10/29/21 22:22 Pain Level 0 10/29/21 22:22
--- NOTE | 2021-10-29 22:45 | DI.CT_ITS ---
Exam(s) CT HEAD CERVICAL SPINE WO EXAM: CT HEAD CERVICAL SPINE WO CLINICAL HISTORY: fall. TECHNIQUE: Imaging Protocol: Axial computed tomography images with coronal and sagittal reformatted images were created and reviewed COMPARISON: CT SINUS CT WITHOUT CONTRAST from 03/26/2017 FINDINGS: BRAIN: There are no skull fractures nor fluid in the visualized paranasal sinuses. There is no evidence of intracranial hemorrhage, mass effect, or shift of midline structures. There are no extra-axial fluid collections. The ventricles are not enlarged or shifted and there is no blo od within the ventricular system nor within the basal cisterns. There is moderate amount of relatively symmetrical periventricular hypodensity consistent with chroni c small vessel disease. CERVICAL SPINE: No evidence of fracture. There is, however, a degenerative anterolisthesis of C3 upon C4 and C4 upon C5, this related to facet arthropathy at these levels. There is, however, no facet joint malalignment. There is chronic disc space narrowing at C3-4, C5-6, and C6-7 levels. IMPRESSION: No acute intracranial findings on this noninfused CT scan of the brain. No evidence of cervical spine fracture, significant malalignment, nor acute compromise of the cervica l spinal canal. There is degenerative anterolisthesis of C3 upon C4 and C4 upon C5, as discussed above. RADIATION DOSE DELIVERED: 1,288.36mGy.cm Total DLP DATA REPOSITORY: All CT scans at this facility are submitted to the National Radiology Data Registry (NRDR) Dose Index Registry (DIR) with the [employer] ([employer]). RADIATION OPTIMIZATION: All CT scans at this facility use at least one of these dose optimization te chniques: automated exposure control; mA and/or kV adjustment per patient size (includes targeted exa ms where dose is matched to clinical indication); or iterative reconstruction.
--- NOTE | 2021-10-29 23:34 | DI.VRAD_ITS ---
PROCEDURE INFORMATION: Exam: CT Head Without Contrast Exam date and time: 10/29/2021 11:19 PM Age: 66 years old Clinical indication: Injury or trauma; Blunt trauma (contusions or hematomas); Consciousness not specified; Injury date: 10/29/21; Injury details: Fall downstairs TECHNIQUE: Imaging protocol: Computed tomography of the head without contrast. Radiation optimization: All CT scans at this facility use at least one of these dose optimization techniques: automated exposure control; mA and/or kV adjustment per patient size (includes targeted exams where dose is matched to clinical indication); or iterative reconstruction. COMPARISON: SINUS CT WITHOUT CONTRAST 03/26/2017 2:58 PM FINDINGS: Brain: Mild volume loss No hemorrhage.Moderate white matter disease No mass effect. Cerebral ventricles: No ventriculomegaly. Paranasal sinuses: Visualized sinuses are unremarkable. No fluid levels. Mastoid air cells: Visualized mastoid air cells are well aerated. Bones/joints: Unremarkable. No acute fracture. Soft tissues: Unremarkable. IMPRESSION: No acute intracranial hemorrhage PROCEDURE INFORMATION: Exam: CT Cervical Spine Without Contrast Exam date and time: 10/29/2021 11:19 PM Age: 66 years old Clinical indication: Injury or trauma; Blunt trauma (contusions or hematomas); Consciousness not specified; Injury date: 10/29/21; Injury details: Fall downstairs TECHNIQUE: Imaging protocol: Computed tomography of the cervical spine without contrast. Radiation optimization: All CT scans at this facility use at least one of these dose optimization techniques: automated exposure control; mA and/or kV adjustment per patient size (includes targeted exams where dose is matched to clinical indication); or iterative reconstruction. COMPARISON: SINUS CT WITHOUT CONTRAST 03/26/2017 2:58 PM FINDINGS: Bones/joints: No acute fracture. Loss of cervical lordosis is presumably on a degenerative basis. Discs/Spinal canal/Neural foramina: Multilevel central canal and foraminal stenosis noted Lungs: Mild emphysema Soft tissues: Unremarkable. IMPRESSION: No acute cervical fracture noted Dictated and Authenticated by: Galdino Grider MD. Ordering:JOSE A Mcclellan MD
== END 2021-10-29 23:50 | disposition home or self-care (01) ==
PROVIDERS: Emergency Provider Physician Assistant; PCP Nurse Practitioner Primary Care
DX: S09.8XXA Other specified injuries of head, initial encounter (principal); S51.811A Laceration without foreign body of right forearm, initial encounter; W10.8XXA Fall (on) (from) other stairs and steps, initial encounter
CPT/HCPCS: 90471; 99284; 70450; 72125; 99283

== ENCOUNTER 2021-11-05 16:04 | Emergency (ER) | payer MEDICARE, BC, SELFPAY ==
[2021-11-05 16:23] VITALS: BP 105/59; PULSE 63; RESP 18; O2SAT 98
--- NOTE | 2021-11-05 18:52 | ED.GENADUL_ITS ---
Discharge Plan Disposition Patient Disposition: HOME Condition: Stable Discharge Details Clinical Impression: Encounter for wound re-check Primary Care Provider: NIDIA MARTINO ED Provider: Jeannie Mejia Home Meds and New Rx's Prescriptions: Continued lisinopril 5 mg tablet 1 tab PO DAILY Combivent Respimat 20-100 mcg/actuation mist 1 spray INHALATION BID atorvastatin [Lipitor] 40 MG tablet 40 mg PO DAILY ascorbic acid (vitamin C) [Vitamin C] 1,000 MG tablet 1 tab PO DAILY calcium carbonate [Calcium 500] 500 MG tablet 1,000 mg PO DAILY estradiol 0.5 MG tablet 0.5 mg PO DAILY Fish Oil 1 EACH capsule,delayed release(DR/EC) 1 tab PO DAILY Topiramate [Trokendi Xr] 50 MG Cap.Er.24h 50 mg PO DAILY aspirin [Aspir-81] 81 mg tablet,delayed release (DR/EC) 81 mg PO .QOD propranolol 40 mg tablet 20 mg PO BID progesterone micronized [Prometrium] 200 mg capsule 100 mg PO DAILY Discharge Instructions Instructions: Acute Wound Care (ED), Steristrips (ED) Additional Instructions: Change the dressing daily. Allowed to air dry. Steri-Strips should start to slough off on their own. Follow up with primary care provider in 3-5 days. Return to ED sooner if any worsening or concerns. Increase oral fluids. Referrals: NIDIA MARTINO [Primary Care Provider] - 1 week Medical Decision Making Wound checked, no signs of induration or infection. This text was generated [employer] dictation system, please disregard any oddities of phrase or misspellings. HPI General Mode of arrival: ambulatory . Date/Time Provider Initiated Documentation: 11/05/21 16:54 . Limitations to Documentation: no limitations . Information obtained by: patient, RN notes reviewed and old records reviewed . HPI Narrative: 58-year-old female presents to the ER for wound recheck. Patient was seen here approximately a week ago for skin tear to the left upper extremity. She has not changed his dressing since her previous visit. Dressing changed. No significant signs of infection no surrounding erythema or induration. She does have multiple Steri-Strips noted to the skin tear on her left upper extremity there is a scab formation underneath. She does have a small laceration noted to her left distal forearm which is covered with a Band-Aid. Dressing change to her right wrist. That seems to be healed. I did discuss home care with her and instructed to change dressing daily. She verbalized understanding. Related Data Home Medications Medication Instructions Recorded Confirmed Topiramate [Trokendi Xr] 50 mg PO DAILY 06/04/17 02/04/20 ascorbic acid (vitamin C) 1,000 mg 1 tab PO DAILY 06/04/17 10/29/21 tablet (Vitamin C) atorvastatin 40 mg tablet (Lipitor) 40 mg PO DAILY 06/04/17 10/29/21 calcium carbonate 500 mg calcium 1,000 mg PO DAILY 06/04/17 10/29/21 (1,250 mg) tablet (Calcium 500) estradiol 0.5 mg tablet 0.5 mg PO DAILY 06/04/17 10/29/21 omega 7-yrb-mct-fish oil 900 1 tab PO DAILY 06/04/17 10/29/21 mg-1,400 mg capsule,delayed release (Fish Oil) aspirin 81 mg tablet,delayed 81 mg PO .QOD 04/27/19 10/29/21 release (Aspir-) propranolol 40 mg tablet 20 mg PO BID 04/27/19 10/29/21 progesterone micronized 200 mg 100 mg PO DAILY 12/07/19 10/29/21 capsule (Prometrium) ipratropium 20 mcg-albuterol 100 1 spray inhalation BID 10/29/21 10/29/21 mcg/actuation mist for inhalation (Combivent Respimat) lisinopril 5 mg tablet 1 tab PO DAILY 10/29/21 10/29/21 Allergies Allergy/AdvReac Type Severity Reaction Status Date / Time oxycodone Allergy Mild Hives Unverified 10/29/21 22:31 oxycodone HCl [From Percocet] Allergy Mild Hives Unverified 10/29/21 22:31 General Stated Complaint: Laceration JORDAN: 4 Review of Systems All systems reviewed & are unremarkable except as noted in HPI and below Integumentary/Breasts Skin/Breast: Reports wounds PFSH All Active Problems (Updated 11/05/21 @ 18:56 by Jeannie Mejia NP) Head injury (Acute) Fall (Acute) Skin tear of left upper extremity (Acute) Encounter for wound re-check (Acute) Lumbar spinal stenosis (Acute) Lumbar radiculopathy (Acute) Lumbar spondylosis (Acute) Left hip pain (Acute) Patellofemoral arthritis of right knee (Acute) Lateral epicondylitis of left elbow (Acute) Biceps tendinitis of right shoulder (Acute) Lateral epicondylitis of right elbow (Acute) Hematoma of lower leg (Acute) Medical History Chronic rhinitis (03/21/17) Social History Smoking/Tobacco Use Status: Current every day Tobacco Type: cigarettes Smoking risk assessment performed?: Yes Alcohol Intake: current Alcohol Intake frequency: 3 or more drinks per day Alcohol type: wine Drug use: Never Substance use type: does not use Current gender identity: female Do you feel safe in your relationship?: Yes Additional Social history: pt unable to assess privately Exam Extrem Elbow/forearm/wrist images: 1. Healing skin tear with multiple Steri-Strips noted scab formation. No signs of infection or surrounding erythema or induration. 2. Small skin tear bleeding controlled. 3. Small healing laceration. Course Vital Signs Vital signs: Vital Signs Pulse 63 11/05/21 16:23 Respiratory Rate 18 11/05/21 16:23 Blood Pressure 105/59 L 11/05/21 16:23 Pulse Oximetry 98 11/05/21 16:23 Temperature Source Temporal Artery Scan 11/05/21 16:23 Pulse 63 11/05/21 16:23 Respiratory Rate 18 11/05/21 16:23 Respiratory Effort Non-Labored 11/05/21 18:47 Blood Pressure 105/59 L 11/05/21 16:23 Blood Pressure Position Sitting 11/05/21 16:23 Pulse Oximetry 98 11/05/21 16:23 Oxygen Delivery Method Room Air 11/05/21 16:23 Oxygen Flow Rate 0 11/05/21 16:23 Pain Level 6 11/05/21 18:42 PAWSS Have you Been Recently Intoxicated or Drunk Within the Last 30 days?: No Have you Ever Experienced Previous Episodes of Alcohol Withdrawal?: No Have you ever Experienced Withdrawal Seizures?: No Have you ever Experienced Delirium Tremens(DT)s?: No Have you ever undergone Alcohol Rehabilitation Treatment (i.e, inpt ot outpatien t treatment programs)?: No Have you ever Experienced Blackouts?: No Have you ever Combined Alcohol with other Downers within the last 90 days?: No Have you ever Combined Alcohol with any other Substance of Abuse during the last 90 days?: No Positive Blood Alcohol level on Presentation? [PCS.BAL]: No Evidence of Increased Autonomic Activity (i.e. HR>120, tremor, sweating, agitat ion, nausea)?: No Result: 0
[2021-11-05 19:02] VITALS: BP 105/59; PULSE 63; RESP 18; O2SAT 98
== END 2021-11-05 19:34 | disposition home or self-care (01) ==
PROVIDERS: Emergency Provider Registered Nurse Emergency; PCP Nurse Practitioner Primary Care
DX: S51.812D Laceration without foreign body of left forearm, subsequent encounter (principal); S61.511D Laceration without foreign body of right wrist, subsequent encounter; F17.210 Nicotine dependence, cigarettes, uncomplicated; X58.XXXD Exposure to other specified factors, subsequent encounter
CPT/HCPCS: 99281

== ENCOUNTER 2022-03-16 15:07 | Inpatient (IN) | payer MEDICARE, BC, SELFPAY ==
[2022-03-16] VITALS (53 sets, daily range): BP systolic 63–123; BP diastolic 49–89; PULSE 58–126; RESP 13–22; TEMP 36.9–37.4; O2SAT 86–99
--- NOTE | 2022-03-16 15:15 | RT.EKG_ITS ---
APPROVED REPORT Exam: Resting ECG Reason for Exam: weakness Patient Location: E HR:92 bpm ECG Measurements Heart Rate 92 AXIS TX 132 P 58 QRSd 80 QRS 18 QT 393 T 62 QTc 487 Conclusion Sinus rhythm. Multiform ventricular premature complexes. Low voltage, extremity leads...all extremity leads <0.5mV
--- NOTE | 2022-03-16 15:30 | DI.CT_ITS ---
Exam(s) CT CHEST PE ABD PELVIS W EXAM: CT CHEST PE ABD PELVIS W CLINICAL HISTORY: Smoker, SOB, weak,30+# weight loss, nausea. TECHNIQUE: Imaging Protocol: Axial computed tomography images with coronal and sagittal reformatted images were created and reviewed CONTRAST MATERIAL: Intravenous: Omnipaque 350 Contrast volume:80 data in ml Oral: No COMPARISON: No exams were available for comparison FINDINGS: CHEST: Heart and great vessels: There is no evidence pulmonary emboli or aortic dissection. Atherosclerotic changes throughout aorta. Ascending aorta measures 3.9 cm. There are no pleural or pericardial effusions. Adenopathy: None. Lungs: No pulmonary nodules, mass or infiltrate. Minimal emphysematous changes. Bones: Old right rib fractures. ABDOMEN/PELVIS: Liver: Mild fatty infiltration. Small cyst left lobe. Tiny cyst inferior right lobe. Gallbladder: No calcified stones, no wall thickening, no abnormal distention.No pericholecystic fluid . Biliary tract: No radiodense calculus, no dilation. Pancreas: Normal density, no abnormal calcifications or inflammatory process. Spleen: Normal. Kidneys: Normal size, contour and axis. No radiodense stones. No hydronephrosis. No masses seen. No perinephric collection. Adrenal glands: No masses seen. Abdominal Aorta and branch vessel: Non-dilated. Severe atherosclerotic changes abdominal aorta and il iac arteries. No significant stenosis . Bowel: Mid bowel somewhat obscured by respiratory motion. No obstruction or bowel wall thickening. H igh-density material noted within the colon be related to prior contrast administration versus other ingested material. Normal quantity of stool. Appendix not seen. No evidence of right lower quadran t inflammation. Bladder: Empty Peritoneal cavity: No ascites, focal collection or mesenteric inflammatory response. No free air. Bones: Mild compression fractures superior endplates of L1 and L3. Schmorl's nodes. Facet degenerat lashell changes causing mild spondylolisthesis at 4 5. Reproductive organs: Within normal limits. Lymph nodes: No pathologically enlarged lymph nodes. Impression: No acute abnormality in the chest, abdomen or pelvis. RADIATION DOSE DELIVERED: 1,033.58mGy.cm Total DLP DATA REPOSITORY: All CT scans at this facility are submitted to the National Radiology Data Registry (NRDR) Dose Index Registry (DIR) with the [employer] (ACR). RADIATION OPTIMIZATION: All CT scans at this facility use at least one of these dose optimization te chniques: automated exposure control; mA and/or kV adjustment per patient size (includes targeted exa ms where dose is matched to clinical indication); or iterative reconstruction.
--- NOTE | 2022-03-16 15:46 | ED.GENADUL_ITS ---
Discharge Plan Disposition Patient Disposition[facility] Condition: Stable Discharge Details Clinical Impression: Acute UTI, Acute dehydration, Electrolyte abnormality, Elevated troponin Admit Date/Time: 03/16/22 21:10 Admit Provider: Seymour Santiago Attending Provider: Seymour Santiago Primary Care Provider: NIDIA MARTINO ED Provider: Lorenzo Jorge Discharge Data Discharge Date/Time-TO BE ENTERED AT DEPARTURE: 03/16/22 22:25 Medical Decision Making 66-year-old female presents from primary care physician's office with her . She had history of COPD, continues to smoke, daily alcohol use, note of poor compliance with medications. She has had malaise, weakness, 30 to 40 pound weight loss over approximately 2 months time. She has had some lightheadedness but no syncope, denies chest pain. In the outpatient office she had both hypotension and a measured low oxygen level. At the time of presentation she is afebrile, oxygenating 96% on room air, pulse of 71 blood pressure 94/53. Differential diagnosis is broad including occult metabolic process, occult VA, dehydration, COPD exacerbation, pneumonia, depression. Patient had fluids initiated, given steroids and DuoNeb updraft. Her white co unt is 9, hematocrit 30, platelets 219. Sodium 134, potassium 3.2, chloride 97, bicarb 22, BUN 22, creatinine 1.1. Magnesium 1.7. AST 171, ALT 202, total bili 0.8. Troponin elevated at 95. Lipase and TSH were normal. Urinalysis notable for leuk esterase and nitrates. Patient observed, repeat troponin obtained and not significantly changed at 98. For urinary tract infection, patient given ceftriaxone. She is a daily drinker with a mild transaminitis. Total bilirubin is normal. CT images of chest, abdomen and pelvis: No acute vascular pathology, atherosclerosis present in abdominal aorta. 8 mm focus of sclerosis at the inferior endplate of T12. Small region of hypodensity at the first second portion of the duodenum. See formal report. HPI General Mode of arrival: ambulatory . Date/Time Provider Initiated Documentation: 03/16/22 15:11 . Limitations to Documentation: no limitations . Information obtained by: patient . History of Present Illness 66 year old F pr esents to the emergency department with the chief complaint of Weakness, low blood pressure, question low oxygen, described as moderate, Quality is described as constant, Patient reports no radiation. Patient started experiencing this week(s) and it has been constant. Rest improves symptom(s), Movement worsens symptoms . Patient notes loss of appetite, malaise, nausea/vomiting, shortness of breath (At times, states she is poorly compliant with inhaler) and weakness; denies chest pain, cough, diaphoresis, fever/chills, headaches and syncope. Patient did receive the following treatments prior to arrival, none Related Data Home Medications Medication Instructions Recorded Confirmed Topiramate [Trokendi Xr] 50 mg PO HS 06/04/17 03/16/22 ascorbic acid (vitamin C) 1,000 mg 1 tab PO DAILY 06/04/17 03/16/22 tablet (Vitamin C) atorvastatin 40 mg tablet (Lipitor) 40 mg PO DAILY 06/04/17 03/16/22 calcium carbonate 500 mg calcium 1,000 mg PO BID 06/04/17 03/16/22 (1,250 mg) tablet (Calcium 500) estradiol 0.5 mg tablet 0.25 mg PO DIRECTED 06/04/17 03/16/22 omega 9-pwl-snb-fish oil 900 1 tab PO DAILY 06/04/17 03/16/22 mg-1,400 mg capsule,delayed release (Fish Oil) aspirin 81 mg tablet,delayed 81 mg PO .QOD 04/27/19 03/16/22 release (Aspir-) propranolol 40 mg tablet 20 mg PO BID 04/27/19 03/16/22 progesterone micronized 200 mg 200 mg PO HS 12/07/19 03/16/22 capsule (Prometrium) ipratropium 20 mcg-albuterol 100 1 spray inhalation BID 10/29/21 03/16/22 mcg/actuation mist for inhalation (Combivent Respimat) lisinopril 5 mg tablet 5 mg PO DAILY 10/29/21 03/16/22 cholecalciferol (vitamin D3) 50 50 mcg PO DAILY 03/16/22 03/16/22 mcg (2,000 unit) tablet (Vitamin D3) cyanocobalamin (vitamin B-12) 1 tab PO DAILY 03/16/22 03/16/22 2,000 mcg tablet folic acid 1 mg tablet 1 tab PO DAILY 03/16/22 03/16/22 meloxicam 7.5 mg tablet 2 tab PO DAILY 03/16/22 03/16/22 Allergies Allergy/AdvReac Type Severity Reaction Status Date / Time oxycodone Allergy Mild Hives Unverified 03/16/22 16:46 oxycodone HCl [From Percocet] Allergy Mild Hives Unverified 03/16/22 16:46 General Stated Complaint: GenMedical JORDAN: 3 Review of Systems Narrative: 30+ pound weight loss over 2 months time, poor p.o. intake for at least 1 month, daily wine drinking. No chest pain, no new cough, continues to smoke 10 cigarettes a day. 8 systems were reviewed and otherwise negative PFSH All Active Problems (Updated 03/16/22 @ 19:01 by Lorenzo Jorge MD) Acute UTI (Acute) Acute dehydration (Acute) Electrolyte abnormality (Acute) Elevated troponin (Acute) Lumbar spinal stenosis (Acute) Lumbar radiculopathy (Acute) Lumbar spondylosis (Acute) Left hip pain (Acute) Patellofemoral arthritis of right knee (Acute) Lateral epicondylitis of left elbow (Acute) Biceps tendinitis of right shoulder (Acute) Lateral epicondylitis of right elbow (Acute) Hematoma of lower leg (Acute) Medical History Chronic rhinitis (03/21/17) Social History Smoking/Tobacco Use Status: Current every day Tobacco Type: cigarettes Smoking risk assessment performed?: Yes Alcohol Intake: current Alcohol Intake frequency: 3 or more drinks per day Alcohol type: wine Drug use: Never Substance use type: does not use Current gender identity: female Do you feel safe at home: Yes Do you feel safe in your relationship?: Yes Additional Social history: pt unable to assess privately Exam Narrative Exam Narrative: GEN: awake, alert, oriented 3. Pleasant, well groomed, interactive. HEAD: Normocephalic, atraumatic ENT: Mucous membranes dry, oropharynx unremarkable, External ear exam unremarkable EYES: PERRL, EOMI NECK: Full ROM, no ANDREEA, no menigismus CHEST/RESP: Nontender, diminished bilaterally with end expiratory wheeze present bilaterally CARDIOVASCULAR: Distant, RRR, no murmur, rub avis. Weak but palpable rad pulse bilateral ABDOMEN: Soft, nontender, no mass. +Bowel sounds EXT: Full ROM, no edema, no rash Neuro: Grossly normal neurologic exam, conversant, interactive. Psych: Speech fluent, thoughts congruent, affect flat Course Vital Signs Vital signs: Vital Signs Temperature 36.9 C 03/16/22 15:09 Pulse 71 03/16/22 15:09 Respiratory Rate 18 03/16/22 15:09 Blood Pressure 94/53 L 03/16/22 15:09 Pulse Oximetry 96 03/16/22 15:09 Temperature 36.9 C 03/16/22 15:09 Temperature Source Tympanic 03/16/22 15:09 Pulse 71 03/16/22 15:09 Respiratory Rate 18 03/16/22 15:09 Respiratory Effort 03/16/22 15:18 Respiratory Depth Normal 03/16/22 15:18 Respiratory Pattern Normal 03/16/22 15:18 Blood Pressure 94/53 L 03/16/22 15:09 Pulse Oximetry 96 03/16/22 15:09 Pain Level 0 03/16/22 15:09 PAWSS Have you Been Recently Intoxicated or Drunk Within the Last 30 days?: No Have you Ever Experienced Previous Episodes of Alcohol Withdrawal?: No Have you ever Experienced Withdrawal Seizures?: No Have you ever Experienced Delirium Tremens(DT)s?: No Have you ever undergone Alcohol Rehabilitation Treatment (i.e, inpt ot outpatient treatment programs)?: No Have you ever Experienced Blackouts?: No Have you ever Combined Alcohol with other Downers within the last 90 days?: No Have you ever Combined Alcohol with any other Substance of Abuse during the last 90 days?: No Positive Blood Alcohol level on Presentation? [PCS.BAL]: No Evidence of Increased Autonomic Activity (i.e. HR>120, tremor, sweating, agitation, nausea)?: No Result: 0
[2022-03-16 15:59] LABS: Abs Immature Grans 0.08 10^3/uL (0.0-0.06); Absolute Basophil Count 0.01 10^3/uL (0.0-0.2); Absolute Lymphocyte Count 0.67 10^3/uL (1.2-3.4); Absolute Monocyte Count 0.99 10^3/uL (0.1-0.8); Absolute Neutrophil Count 8.05 10^3/uL (1.2-6.7); Basophils % 0.1; HCT 30.6 % (36.0-46.0); HGB 10.8 g/dL (11.2-15.7); Immature Grans % 0.8; Lymphocytes % 6.8; MCH 36.2 pg (27.0-33.0); MCHC 35.3 % (32.0-36.0); MCV 103 fL (80-95); MPV 10.9 fL (8.0-11.0); Monocytes % 10.1; Neutrophils % 82.2; Nucleated RBC 0.4 % (0.0-0.3); Platelet Count 219 10^3/uL (130-400); RBC 2.98 10^6/uL (3.93-5.22); RDW 13.8 % (11.7-14.6); RDW-SD 52.2 fL
[2022-03-16] MEDS: Normal Saline 1,000 ML 1000 ML IV (16:03)
[2022-03-16 16:24] LABS: PTT Activated 21.1 sec (21.0-27.5); Prothrombin Time 9.9 sec (9.3-11.0)
[2022-03-16 16:29] LABS: COVID-19 PCR Negative (Negative); Influenza A PCR Negative (Negative); Influenza B PCR Negative (Negative); RSV PCR Negative (Negative); Source Nasopharynx
[2022-03-16 16:35] LABS: ALT 202 U/L (14-59); AST 171 U/L (15-37); Albumin 3.4 g/dL (3.4-5.0); Alkaline Phosphatase 107 U/L (46-116); Anion Gap 14.3 mmol/L (3-11); BUN 22 mg/dL (7-18); Bilirubin, Total 0.8 mg/dL (0.2-1.0); CO2 22.7 mmol/L (21.0-32.0); CREATININE 1.1 mg/dL (0.55-1.02); Calcium 9.3 mg/dL (8.5-10.1); Chloride 97 mmol/L (98-107); Estimated GFR 54.73 (mL/min/1.73m2); Glucose 159 mg/dL (74-106); Magnesium 1.7 mg/dL (1.8-2.4); Potassium 3.2 mmol/L (3.5-5.1); Sodium 134 mmol/L (136-145); Total Protein 6.7 g/dL (6.4-8.2)
[2022-03-16 16:51] LABS: Troponin I 95 ng/L (<or=60)
[2022-03-16 17:00] LABS: Lipase 110 U/L (73-393)
[2022-03-16] MEDS: Normal Saline 1,000 ML 150 ML IV ×2 (17:00→23:27)
[2022-03-16 17:03] LABS: ETHANOL BLOOD < 3.0 mg/dL (<10)
[2022-03-16 17:23] LABS: Calcium 9.4 mg/dL (8.5-10.1)
[2022-03-16] MEDS: Normal Saline - Diluent 50 ML VIAL IJ (17:26)
[2022-03-16] MEDS: Omnipaque 350 MG/ML 100 ML BTL IJ (17:28)
[2022-03-16] MEDS: Normal Saline Flush 10 ML SYR IVP ×2 (17:30→18:14)
[2022-03-16 17:43] LABS: *AMPHETAMINES SCREEN URINE Negative (Negative); *BARBITURATES SCREEN URINE Negative (Negative); *BENZODIAZEPINES SCREEN URINE Negative (Negative); Cannabinoids THC Negative (Negative); Cocaine Screen,Urine Negative (Negative); METHADONE URINE SCREEN Negative (Negative); OPIATES URINE SCREEN Negative (Negative)
[2022-03-16 17:45] LABS: Bilirubin Moderate (Negative); Blood Negative (Negative); Clarity Cloudy (Clear); Glucose Negative (Negative); Ketones 15 mg/dL (Negative); Leukocyte Esterase Trace (Negative); Nitrite Positive (Negative); Specific Gravity 1.025 (1.005-1.025); Tricyclic Antidepressants Negative (Negative)
[2022-03-16] MEDS: POTASSIUM CHLORIDE 20 MEQ/100 ML BAG 50 MEQ IVPB (17:52)
[2022-03-16 17:53] LABS: Bacteria Many HPF (Negative); Epithelial Cells Few HPF (Negative); RBC 0-2 HPF (0-2)
[2022-03-16 17:54] LABS: C & S Indicated? Yes; Casts Negative LPF (Negative); Crystals Negative HPF (Negative); Mucus Trace (Negative)
[2022-03-16] MEDS: MAGNESIUM SULFATE 1 GM/100 ML BAG IVPB (17:54)
[2022-03-16] MEDS: methylPREDNISolone SUCC 125 MG VIAL IVP (18:13)
[2022-03-16] MEDS: Albuterol/Ipratropium 3 ML UPD VIAL UPD (18:16)
--- NOTE | 2022-03-16 18:30 | RT.EKG_ITS ---
APPROVED REPORT Exam: Resting ECG Reason for Exam: repeat Patient Location: E HR:75 bpm ECG Measurements Heart Rate 75 AXIS ND 124 P 68 QRSd 77 QRS 15 QT 397 T 67 QTc 444 Conclusion Sinus rhythm Ventricular premature complex. Low voltage, extremity and precordial leads.
[2022-03-16 18:33] LABS: Troponin I 98 ng/L (<or=60)
--- NOTE | 2022-03-16 18:37 | DI.VRAD_ITS ---
PROCEDURE INFORMATION: Exam: CTA Chest With Contrast CTA Abdomen With Contrast Exam date and time: 03/16/2022 5:29 PM Age: 66 years old Clinical indication: Shortness of breath; Nausea, weight loss; Patient HX: Smoker, SOB, weakness, 30+ lbs weight loss, nausea TECHNIQUE: Imaging protocol: Computed tomographic angiography of the chest with contrast. Computed tomographic angiography of the abdomen with contrast. 3D rendering (Not supervised by radiologist): MIP and/or 3D reconstructed images were created by the technologist. Contrast material: OMNIPAQUE 350; Contrast volume: 100 ml; Contrast route: INTRAVENOUS (IV); COMPARISON: CR XR RIBS RT W PA LAT CHEST 12/29/2019 12:47 PM FINDINGS: VASCULATURE: Pulmonary arteries: No pulmonary emboli. Aorta: There is diffuse calcified atherosclerotic plaque throughout the abdominal aorta and iliac arteries. No abdominal aortic aneurysm. Celiac trunk and mesenteric arteries: No occlusion or definite stenosis. Renal arteries: No occlusion. Prominent atherosclerotic plaque noted at the bilateral origins, with left greater than right stenosis. CHEST: Lungs: Mild bronchial wall thickening is noted. Pleural spaces: No pneumothorax. No pleural effusion. Heart: No cardiomegaly. No pericardial effusion. ABDOMEN AND PELVIS: Liver: A 1.6 cm simple cyst is seen in the left hepatic lobe and a small hypodensity in the right hepatic lobe, which is too small to characterize. Gallbladder and bile ducts: The gallbladder is unremarkable. No calcified stones. No ductal dilation. Pancreas: No mass. No ductal dilation. Spleen: The spleen is unremarkable. No splenomegaly. Adrenal glands: A 1.1 cm nodule is noted in the left adrenal glands characterized. Kidneys and ureters: The kidneys are unremarkable. No hydronephrosis. Stomach and bowel: No obstruction. No mucosal thickening. A small region of hypodensity noted at the junction of the 1st and 2nd portion of the duodenum (image 193, series 16). Intraperitoneal space: No free air. No significant fluid collection. Lymph nodes: No enlarged lymph nodes. Bones/joints: Old right rib fractures are noted. 8 mm focus of mild sclerosis noted at the inferior endplate T12, which is nonspecific. There is a superior endplate compression deformity in the L1 and L3 vertebral bodies, likely related to Schmorl's nodes. There is grade 1 anterolisthesis of L4 on L5. Soft tissues: Unremarkable. IMPRESSION: 1. No evidence of acute vascular pathology. 2. Atherosclerotic plaque throughout abdominal aorta without evidence of abdominal aortic aneurysm. Stenosis within the left greater than right renal arteries. 3. 8 mm focus of sclerosis at the inferior endplate T12 is nonspecific. However, compare with imaging and correlate with clinical findings to exclude any suspicious etiology. 4. Small region of hypodensity at the junction of the 1st and 2nd portions of the duodenum, which could be artifactual or represent a pathologic process. Correlate clinical findings to exclude duodenal ulcer disease. Dictated and Authenticated by: Farzana Coreas MD. Ordering:FRANKIE Ventura MD
[2022-03-16] MEDS: cefTRIAXone 1 GM/50 ML BAG IVPB (19:30)
[2022-03-16] MEDS: Aspirin 325 MG TAB PO (19:33)
[2022-03-16] MEDS: Enoxaparin 60 MG/0.6 ML SYR SC (19:34)
--- NOTE | 2022-03-16 21:11 | W.PM.HP.N ---
Date of service: 03/16/22 Time of Service: 21:11 Assessment and Plan Assessment and plan (1) Acute UTI: Start date: 03/16/22 Status: Acute Assessment and plan: This is a 67-year lady who presented with a 6-month history of decreased appetite and vague symptoms mostly with coughing with gagging and emesis associated with decreased appetite and decreased intake other than wine which she drinks daily. She has lost 30 pounds. It appears she has no symptoms of sepsis but abdominal CT had some slight abnormalities in the duodenum area with more broad-spectrum antibiotics used for coverage of the UTI with Zosyn initiated after 1 dose of Rocephin. We will follow-up cultures and adjust antibiotic therapy accordingly. IV hydration may help with flushing the urinary system. She also is mildly dehydrated. She is a full code. (2) Acute dehydration: Start date: 03/16/22 Status: Acute Assessment and plan: Patient had slightly low sodium as well as low potassium and magnesium. She was repleted with IV magnesium and potassium in the ED with follow-up lab in the morning. IV hydration overnight with normal saline at 150 cc an hour watching for fluid overload with patient having some crackles in her lungs and possibility of tubular breath sounds though all that the CT showed was thickening of the bronchial nieto without infiltrates or effusions. (3) Electrolyte abnormality: Start date: 03/16/22 Status: Acute Assessment and plan: Repeat IV electrolytes with potassium management can be given in the ED. Or supplement if needed with follow-up lab in the morning. (4) Elevated troponin: Start date: 03/16/22 Status: Acute Assessment and plan: Trend troponins and cardiac monitoring. Further evaluation only if indicated. Patient is asymptomatic. (5) Unexplained weight loss: Start date: 03/16/22 Status: Acute Assessment and plan: Patient is a smoker but has no evidence of suspicious pulmonary process, she did have area of sclerosis on T12 vertebrae and hypodensity in the junction of the second and third portion of the duodenum which may need further investigation as to underlying processes. Both of these findings appear to be minor. 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 Her estrogen and progesterone is being held for now and can be reevaluated. She denies any [employer] complaints. History of Present Illness History of Present Illness Chief Complaint: Malaise with 30 pound weight loss and decreased appetite Narrative: This is a 66-year-old female patient who presented to the ED from her PCPs office with her not driving her. She has a history of tobacco use daily with daily alcohol use usually drinking wine 1 to 2 glasses at least and poor compliance with medications as well as a history of COPD on inhalers presenting with a 30 pound weight loss over the last 6 months with anorexia, persistent cough with some slight gagging and then emesis without nausea and having no abdominal pain. She simply does not feel hungry and has not been eating. She has been continuing to smoke and drink wine. She was generally weak and had malaise but no history of chills or fever. She did have hypoxic oxygen level in her PCPs office but in the ED she was oxygenating well at 96% on room air. She was borderline hypotension and not tachycardic. Evaluation did conclude the patient may be slightly dry though her creatinine was not markedly elevated though she has low muscle mass. Her potassium was slightly low and magnesium low to low normal with some repletion in the ED. She did have an elevated troponin which remained slightly elevated appear to be secondary to her stress. Her heart rhythm as it was not tachycardic. She did appear to have a UTI and was initiated on therapy for that with this antibiotic coverage expanded when her CT of the abdomen along with pelvis and chest did reveal possible duodenal process though she was having no pain for coverage of abdominal processes as well. Without fever or elevation in her WBC, she does not appear septic and concerns were for unknown infectious process other than her UTI as reason for explaining the antibiotics. She offers no further history and is a very vague historian. Review of Systems Narrative: 13 point review of systems otherwise unrevealing or stable. She denies any new aches or pains or physical restrictions. [facility] All Active Problems (Updated 03/17/22 @ 06:43 by Seymour Santiago) Unexplained weight loss (Acute) Acute UTI (Acute) Acute dehydration (Acute) Electrolyte abnormality (Acute) Elevated troponin (Acute) Lumbar spinal stenosis (Acute) Lumbar radiculopathy (Acute) Lumbar spondylosis (Acute) Left hip pain (Acute) Patellofemoral arthritis of right knee (Acute) Lateral epicondylitis of left elbow (Acute) Biceps tendinitis of right shoulder (Acute) Lateral epicondylitis of right elbow (Acute) Hematoma of lower leg (Acute) Medical History Chronic rhinitis (03/21/17) Social History Smoking/Tobacco Use Status: Current every day Tobacco Type: cigarettes Smoking risk assessment performed?: Yes Alcohol Intake: current Alcohol Intake frequency: 3 or more drinks per day Alcohol type: wine Drug use: Never Substance use type: does not use Current gender identity: female Do you feel safe at home: Yes Do you feel safe in your relationship?: Yes Additional Social history: pt unable to assess privately Meds Allergies and Home Medications Allergies Allergy/AdvReac Type Severity Reaction Status Date / Time oxycodone Allergy Mild Hives Unverified 03/16/22 16:46 oxycodone HCl [From Percocet] Allergy Mild Hives Unverified 03/16/22 16:46 Home Medications Medication Instructions Recorded Confirmed Type Topiramate [Trokendi Xr] 50 mg PO HS 06/04/17 03/16/22 History ascorbic acid (vitamin C) 1,000 mg 1 tab PO DAILY 06/04/17 03/16/22 History tablet (Vitamin C) atorvastatin 40 mg tablet (Lipitor) 40 mg PO DAILY 06/04/17 03/16/22 History calcium carbonate 500 mg calcium 1,000 mg PO BID 06/04/17 03/16/22 History (1,250 mg) tablet (Calcium 500) estradiol 0.5 mg tablet 0.25 mg PO DIRECTED 06/04/17 03/16/22 History omega 1-zdt-zkc-fish oil 900 1 tab PO DAILY 06/04/17 03/16/22 History mg-1,400 mg capsule,delayed release (Fish Oil) aspirin 81 mg tablet,delayed 81 mg PO .QOD 04/27/19 03/16/22 History release (Aspir-) propranolol 40 mg tablet 20 mg PO BID 04/27/19 03/16/22 History progesterone micronized 200 mg 200 mg PO HS 12/07/19 03/16/22 History capsule (Prometrium) ipratropium 20 mcg-albuterol 100 1 spray inhalation BID 10/29/21 03/16/22 History mcg/actuation mist for inhalation (Combivent Respimat) lisinopril 5 mg tablet 5 mg PO DAILY 10/29/21 03/16/22 History cholecalciferol (vitamin D3) 50 50 mcg PO DAILY 03/16/22 03/16/22 History mcg (2,000 unit) tablet (Vitamin D3) cyanocobalamin (vitamin B-12) 1 tab PO DAILY 03/16/22 03/16/22 History 2,000 mcg tablet folic acid 1 mg tablet 1 tab PO DAILY 03/16/22 03/16/22 History meloxicam 7.5 mg tablet 2 tab PO DAILY 03/16/22 03/16/22 History Exam Narrative Exam Narrative: General: Patient appears older than stated age, flattened affect but good eye contact. Alert and oriented to person, place and time. She is in no acute distress. HEENT: Normocephalic, coarsened facial features, eyes with pupils equal and react to light symmetrically, extraocular movement intact and sclera anicteric. Oropharynx with dry mucosa. Neck: Supple without JVD. Lungs: Fair aeration with coarse crackles over the bases on the left more than right and tubular breath sounds on the left with no dullness to percussion. Heart regular rate and rhythm with systolic murmur left sternal border 3/6 intensity. No gallops or rubs. Breast: Exam deferred. Abdomen: Scaphoid contour, soft and nontender to palpation with no palpable hepatosplenomegaly. Bowel sounds positive all quadrants. Genitalia/rectal: Exam deferred. Extremities: Without clubbing, cyanosis or grossly pitting edema. Decreased muscle mass with muscle atrophy over upper and lower extremities. Fair capillary refill. Skin: Normal color, warm and dry. Lymph: No gross generalized lymphadenopathy. Neuro: Cranial nerves II through XII gross intact, no focalizing motor deficits no tremors. Psych: Flattened affect with depressed mood with patient appearing apathetic. No abnormal thought processes. Remote and recent memory appear to be grossly intact. She is a vague historian but does not appear to have problems with memory. Results Imaging Imaging Studies: CTA Chest With Contrast CTA Abdomen With Contrast Exam date and time: 03/16/2022 5:29 PM Age: 66 years old Clinical indication: Shortness of breath; Nausea, weight loss; Patient HX: Smoker, SOB, weakness, 30+ lbs weight loss, nausea TECHNIQUE: Imaging protocol: Computed tomographic angiography of the chest with contrast. Computed tomographic angiography of the abdomen with contrast. 3D rendering (Not supervised by radiologist): MIP and/or 3D reconstructed images were created by the technologist. Contrast material: OMNIPAQUE 350; Contrast volume: 100 ml; Contrast route: INTRAVENOUS (IV);? COMPARISON: CR XR RIBS RT W PA LAT CHEST 12/29/2019 12:47 PM FINDINGS: VASCULATURE: Pulmonary arteries: No pulmonary emboli. Aorta: There is diffuse calcified atherosclerotic plaque throughout the abdominal aorta and iliac arteries. No abdominal aortic aneurysm. Celiac trunk and mesenteric arteries: No occlusion or definite stenosis. Renal arteries: No occlusion. Prominent atherosclerotic plaque noted at the bilateral origins, with left greater than right stenosis. CHEST: Lungs: Mild bronchial wall thickening is noted. Pleural spaces: No pneumothorax. No pleural effusion. Heart: No cardiomegaly. No pericardial effusion. ABDOMEN AND PELVIS: Liver: A 1.6 cm simple cyst is seen in the left hepatic lobe and a small hypodensity in the right hepatic lobe, which is too small to characterize. Gallbladder and bile ducts: The gallbladder is unremarkable. No calcified stones. No ductal dilation. Pancreas: No mass. No ductal dilation. Spleen: The spleen is unremarkable. No splenomegaly. Adrenal glands: A 1.1 cm nodule is noted in the left adrenal glands characterized. Kidneys and ureters: The kidneys are unremarkable. No hydronephrosis. Stomach and bowel: No obstruction. No mucosal thickening. A small region of hypodensity noted at the junction of the 1st and 2nd portion of the duodenum (image 193, series 16). Intraperitoneal space: No free air. No significant fluid collection. Lymph nodes: No enlarged lymph nodes. Bones/joints: Old right rib fractures are noted. 8 mm focus of mild sclerosis noted at the inferior endplate T12, which is nonspecific. There is a superior endplate compression deformity in the L1 and L3 vertebral bodies, likely related to Schmorl's nodes. There is grade 1 anterolisthesis of L4 on L5. Soft tissues: Unremarkable. IMPRESSION: 1. No evidence of acute vascular pathology. 2. Atherosclerotic plaque throughout abdominal aorta without evidence of abdominal aortic aneurysm. Stenosis within the left greater than right renal arteries. 3. 8 mm focus of sclerosis at the inferior endplate T12 is nonspecific. However, compare with imaging and correlate with clinical findings to exclude any suspicious etiology. 4. Small region of hypodensity at the junction of the 1st and 2nd portions of the duodenum, which could be artifactual or represent a pathologic process. Correlate clinical findings to exclude duodenal ulcer disease. Labs Result diagrams: 03/16/22 15:48 03/16/22 15:48 Labs: Laboratory Results - last 24 hr 03/16/22 03/16/22 03/16/22 15:35 15:48 15:48 WBC 9.80 RBC 2.98 L Hgb 10.8 L Hct 30.6 L MCV 103 H MCH 36.2 H MCHC 35.3 RDW 13.8 Plt Count 219 MPV 10.9 Immature Gran % 0.8 Neutrophils % 82.2 Lymphocytes % 6.8 Monocytes % 10.1 Eosinophils % 0.0 Basophils % 0.1 Nucleated RBC % 0.4 H Absolute Neutrophils 8.05 H Absolute Lymphocytes 0.67 L Absolute Monocytes 0.99 H Absolute Eosinophils 0.00 Absolute Basophils 0.01 PT INR APTT Sodium 134 L Potassium 3.2 L Chloride 97 L Carbon Dioxide 22.7 Anion Gap 14.3 H BUN 22 H Creatinine 1.1 H Est GFR (CKD-EPI 2020) 54.73 Glucose 159 H Calcium 9.3 Magnesium 1.7 L Total Bilirubin 0.8 AST 171 H ALT 202 H Alkaline Phosphatase 107 Troponin I 95 H* Total Protein 6.7 Albumin 3.4 Lipase 110 TSH Urine Color Urine Clarity Urine pH Ur Specific [place] Urine Protein Urine Ketones Urine Blood Urine Nitrite Urine Bilirubin Urine Urobilinogen Ur Leukocyte Esterase Urine RBC Urine WBC Ur Epithelial Cells Urine Crystals Urine Bacteria Urine Casts Urine Mucus Ur Culture Indicated? Urine Glucose Urine Opiates Screen Urine Methadone Screen Ur Barbiturates Screen Ur Tricyclics Screen Ur Amphetamines Screen U Benzodiazepines Scrn Urine Cocaine Screen Ur THC Screen Ethyl Alcohol < 3.0 COVID-19 Source Nasopharynx SARS-CoV-2 (PCR) Negative Influenza Type A (PCR) Negative Influenza Type B (PCR) Negative RSV (PCR) Negative 03/16/22 03/16/22 03/16/22 15:48 15:48 17:21 WBC RBC Hgb Hct MCV MCH MCHC RDW Plt Count MPV Immature Gran % Neutrophils % Lymphocytes % Monocytes % Eosinophils % Basophils % Nucleated RBC % Absolute Neutrophils Absolute Lymphocytes Absolute Monocytes Absolute Eosinophils Absolute Basophils PT 9.9 INR 1.0 APTT 21.1 Sodium Potassium Chloride Carbon Dioxide Anion Gap BUN Creatinine Est GFR (CKD-EPI 2020) Glucose Calcium 9.4 Magnesium Total Bilirubin AST ALT Alkaline Phosphatase Troponin I Total Protein Albumin Lipase TSH 1.90 Urine Color Urine Clarity Urine pH Ur Specific [place] Urine Protein Urine Ketones Urine Blood Urine Nitrite Urine Bilirubin Urine Urobilinogen Ur Leukocyte Esterase Urine RBC Urine WBC Ur Epithelial Cells Urine Crystals Urine Bacteria Urine Casts Urine Mucus Ur Culture Indicated? Urine Glucose Urine Opiates Screen Negative Urine Methadone Screen Negative Ur Barbiturates Screen Negative Ur Tricyclics Screen Negative Ur Amphetamines Screen Negative U Benzodiazepines Scrn Negative Urine Cocaine Screen Negative Ur THC Screen Negative Ethyl Alcohol COVID-19 Source SARS-CoV-2 (PCR) Influenza Type A (PCR) Influenza Type B (PCR) RSV (PCR) 03/16/22 03/16/22 17:21 18:09 WBC RBC Hgb Hct MCV MCH MCHC RDW Plt Count MPV Immature Gran % Neutrophils % Lymphocytes % Monocytes % Eosinophils % Basophils % Nucleated RBC % Absolute Neutrophils Absolute Lymphocytes Absolute Monocytes Absolute Eosinophils Absolute Basophils PT INR APTT Sodium Potassium Chloride Carbon Dioxide Anion Gap BUN Creatinine Est GFR (CKD-EPI 2020) Glucose Calcium Magnesium Total Bilirubin AST ALT Alkaline Phosphatase Troponin I 98 H* Total Protein Albumin Lipase TSH Urine Color Yellow Urine Clarity Cloudy Urine pH 7.0 Ur Specific [place] 1.025 Urine Protein 100 H Urine Ketones 15 H Urine Blood Negative Urine Nitrite Positive H Urine Bilirubin Moderate H Urine Urobilinogen 4.0 H Ur Leukocyte Esterase Trace H Urine RBC 0-2 Urine WBC 10-20 H Ur Epithelial Cells Few Urine Crystals Negative Urine Bacteria Many Urine Casts Negative Urine Mucus Trace Ur Culture Indicated? Yes Urine Glucose Negative Urine Opiates Screen Urine Methadone Screen Ur Barbiturates Screen Ur Tricyclics Screen Ur Amphetamines Screen U Benzodiazepines Scrn Urine Cocaine Screen Ur THC Screen Ethyl Alcohol COVID-19 Source SARS-CoV-2 (PCR) Influenza Type A (PCR) Influenza Type B (PCR) RSV (PCR) Last Vital Signs Temp 36.9 C 03/16/22 15:09 Pulse 74 03/16/22 21:01 Resp 16 03/16/22 21:01 BP 85/60 L 03/16/22 21:01 Pulse Ox 98 03/16/22 21:01 PAWSS Have you Been Recently Intoxicated or Drunk Within the Last 30 days?: No Have you Ever Experienced Previous Episodes of Alcohol Withdrawal?: No Have you ever Experienced Withdrawal Seizures?: No Have you ever Experienced Delirium Tremens(DT)s?: No Have you ever undergone Alcohol Rehabilitation Treatment (i.e, inpt ot outpatient treatment programs)?: No Have you ever Experienced Blackouts?: No Have you ever Combined Alcohol with other Downers within the last 90 days?: No Have you ever Combined Alcohol with any other Substance of Abuse during the last 90 days?: No Positive Blood Alcohol level on Presentation? [PCS.BAL]: No Evidence of Increased Autonomic Activity (i.e. HR>120, tremor, sweating, agitation, nausea)?: No Result: 0
[2022-03-17 00:01] VITALS: PULSE 77
[2022-03-17] MEDS: PIPERACILLIN/TAZO 3.375 GM in Normal Saline 50 ML IVPB ×3 (00:07→10:17)
[2022-03-17] MEDS: Normal Saline Flush 10 ML SYR IVP ×2 (00:09→10:17)
[2022-03-17] MEDS: Pantoprazole 40 MG VIAL IVP ×2 (00:10→10:17)
[2022-03-17 00:28] VITALS: BP 106/71; PULSE 58; RESP 16; TEMP 37.1; O2SAT 98
[2022-03-17 03:29] VITALS: BP 109/68; PULSE 59; RESP 21; TEMP 36.6; O2SAT 96
[2022-03-17] MEDS: Normal Saline 1,000 ML 150 ML IV (06:37)
[2022-03-17 07:14] LABS: HCT 23.7 % (36.0-46.0); MCH 34.9 pg (27.0-33.0); MCHC 33.8 % (32.0-36.0); MCV 104 fL (80-95); MPV 12.3 fL (8.0-11.0); Platelet Count 158 10^3/uL (130-400); RBC 2.29 10^6/uL (3.93-5.22); RDW 13.9 % (11.7-14.6); RDW-SD 52.4 fL; WBC 5.05 10^3/uL (4.4-10.8)
[2022-03-17 07:23] LABS: Prothrombin Time 10.5 sec (9.3-11.0)
[2022-03-17 07:34] LABS: Troponin I 56 ng/L (<or=60)
[2022-03-17 07:35] VITALS: BP 116/73; PULSE 52; RESP 16; TEMP 36.4; O2SAT 98
[2022-03-17 07:36] LABS: ALT 131 U/L (14-59); AST 92 U/L (15-37); Albumin 2.6 g/dL (3.4-5.0); Alkaline Phosphatase 92 U/L (46-116); Anion Gap 12.9 mmol/L (3-11); BUN 19 mg/dL (7-18); Bilirubin, Total 0.4 mg/dL (0.2-1.0); CO2 19.1 mmol/L (21.0-32.0); Calcium 7.8 mg/dL (8.5-10.1); Chloride 105 mmol/L (98-107); Estimated GFR 60.98 (mL/min/1.73m2); Glucose 210 mg/dL (74-106); Potassium 3.5 mmol/L (3.5-5.1); Sodium 137 mmol/L (136-145); Total Protein 5.3 g/dL (6.4-8.2)
[2022-03-17] MEDS: Enoxaparin 60 MG/0.6 ML SYR SC (07:47)
[2022-03-17] MEDS: Cyanocobalamin 500 MCG TAB 2000 MCG PO (07:48)
[2022-03-17] MEDS: Calcium Carbonate 1.25 GM TAB 2.5 GM PO (07:48)
[2022-03-17] MEDS: Cholecalciferol (Vitamin D3) 1,000 UNIT TAB 2000 UNITS PO (07:48)
[2022-03-17] MEDS: Aspirin E.C. 81 MG TABEC PO (07:48)
[2022-03-17] MEDS: Atorvastatin 40 MG TAB 80 MG PO (07:48)
[2022-03-17] MEDS: Thiamine 100 MG TAB PO (07:49)
[2022-03-17] MEDS: Multivitamin TAB 1 TAB PO (07:49)
[2022-03-17] MEDS: Omega-3 Fatty Acids 1000 MG CAP PO (07:49)
[2022-03-17] MEDS: Folic Acid 1 MG TAB PO (07:49)
[2022-03-17 08:00] VITALS: PULSE 52
[2022-03-17] MEDS: Ipratropium/Albuterol 4 GM 120 PUFF INH IH (08:21)
[2022-03-17 08:27] LABS: Lab Add On Test DONE
[2022-03-17 09:31] LABS: Folate 18.9 ng/mL (8.6-20.0); Vitamin B12 1205 pg/mL (193-986)
[2022-03-17 11:07] VITALS: BP 98/58; PULSE 62; RESP 16; TEMP 37.4; O2SAT 96
[2022-03-17] MEDS: Fosfomycin Tromethamine 3 GM PACKET PO (13:36)
--- NOTE | 2022-03-17 13:41 | W.PM.DS.N ---
Date of service: 03/17/22 Time of Service: 13:41 DS: Diagnosis Discharge Diagnosis (1) Acute UTI: Status: Acute (2) Acute dehydration: Status: Acute (3) Electrolyte abnormality: Status: Acute (4) Elevated troponin: Status: Acute (5) Unexplained weight loss: Status: Acute Discharge Plan Disposition Patient Disposition: Home Condition: Improving Discharge Details Reason For Visit: UTI, Electrolyte Abnormalities, Troponinemia Admit Date/Time: 03/16/22 21:10 Admit Provider: Seymour Santiago Attending Provider: Seymour Santiago Primary Care Provider: NIDIA MARTINO Hospital Course Hospital Course: This is a 66-year-old female patient who presented to the [facility] emergency department from her PCPs office with her . She has past medical history of tobacco use, daily, with daily alcohol use, usually drinking wine 1 to 2 glasses, and poor compliance with medications, as well as a history of COPD on inhalers with a chief complaint of 30 pound weight loss over the past 6 months, anorexia, persistent cough and some slight gagging, with nieces. She denied nausea she denies abdominal pain. She simply states she does not feel hungry and has not been eating. She continues to smoke and drink wine. She states that she is generally weak and has been complaining malaise but no history of chills or fever. She did have hypoxic oxygen level in her PCPs office and was sent to the ED. The ED she was oxygenating well at 96% on room air. She is borderline hypotensive and not tachycardic. Evaluation did conclude the patient may be slightly dry though her creatinine was not markedly elevated though she has low muscle mass. Her potassium was slightly low magnesium low and both were repleted. She did have an elevated troponin which remained slightly elevated which is probably secondary to stress. Her heart rhythm was not tachycardic. She did appear to have a UTI and was initiated on therapy for that with this antibiotic coverage explained when her CT of the abdomen or lower pelvis and chest did reveal a possible duodenal process though she has she was having no pain, antibiotic should help cover that as well. She is anxious to go home because it is her birthday. Her thinks that it would be fine for her to go home, he states can take care of her. She has been rehydrated with IV fluids. She is taking oral fluids without issue. She was given Fosfomycin by mouth for UTI. She was discharged to home, asked to follow-up with her PCP and have labs checked next week. She was discharged stable, improved with her . CT Chest/Abd 1. No evidence of acute vascular pathology. 2. Atherosclerotic plaque throughout abdominal aorta without evidence of abdominal aortic aneurysm. Stenosis within the left greater than right renal arteries. 3. 8 mm focus of sclerosis at the inferior endplate T12 is nonspecific. However, compare with imaging and correlate with clinical findings to exclude any suspicious etiology. 4. Small region of hypodensity at the junction of the 1st and 2nd portions of the duodenum, which could be artifactual or represent a pathologic process. Correlate clinical findings to exclude duodenal ulcer disease. She is encouraged to follow-up with gastrointestinal specialties regarding the hypodensity at the junction of the first and second portions of the duodenum. She chooses to go to [facility] to see Dr. Sandhu. A referral was sent. She is in agreement with this plan. Discussed with Dr Washington. Home Meds and New Rx's Prescriptions: Continued lisinopril 5 mg tablet 5 mg PO DAILY Combivent Respimat 20-100 mcg/actuation mist 1 spray INHALATION BID atorvastatin [Lipitor] 40 MG tablet 40 mg PO DAILY ascorbic acid (vitamin C) [Vitamin C] 1,000 MG tablet 1 tab PO DAILY calcium carbonate [Calcium 500] 500 MG tablet 1,000 mg PO BID estradiol 0.5 MG tablet 0.25 mg PO DIRECTED Rx Instructions: 4x/wk Fish Oil 1 EACH capsule,delayed release(DR/EC) 1 tab PO DAILY Topiramate [Trokendi Xr] 50 MG Cap.Er.24h 50 mg PO HS Rx Instructions: winter only aspirin [Aspir-81] 81 mg tablet,delayed release (DR/EC) 81 mg PO .QOD propranolol 40 mg tablet 20 mg PO BID progesterone micronized [Prometrium] 200 mg capsule 200 mg PO HS Rx Instructions: days 1-12 each month meloxicam 7.5 mg tablet 2 tab PO DAILY Label Comments: Take 1 tablet by mouth once a day for 3 days, then increase to 2 tablets by mouth once a day cholecalciferol (vitamin D3) [Vitamin D3] 50 mcg (2,000 unit) Tablet 50 mcg PO DAILY folic acid 1 mg tablet 1 tab PO DAILY cyanocobalamin (vitamin B-12) 2,000 mcg tablet 1 tab PO DAILY Label Comments: Take 1 tablet by mouth once a day for vitamin b12 deficiency Discharge Instructions Instructions: Fosfomycin (By mouth), Dehydration (DC), Urinary Tract Infection in Women (DC) Additional Instructions: Continue home medications. Drink plenty of fluids. Follow up with your PCP regarding the findings on your CT scan. A referral has been [place] [facility] [place]per your request) to follow up on abnormal finding on your CT scan. You should have your labs drawn next week to recheck your electrolytes. Stand Alone Forms: Nursing Discharge Form Referrals: Greg Muro [ NON-[facility] STAFF PHYSICIAN] - (Please call Saturday to make an Appointment Small region of hypodensity at the junction of the 1st and 2nd portions of the duodenum, which could be artifactual or represent a pathologic process; duodenal ulcer disease. Patient reports major weight loss this year; greater than 20 kg. ) NIDIA MARTINO [Primary Care Provider] - (Please call Saturday to make an Appointment in the next 1-2 weeks) Activity:: Activity as Tolerated Equipment/Supplies:: No Equipment Needed Diet:: As Tolerated Discharge Orders Discharge Orders: Discharge Order (Routine); Ordered 03/17/22 Ordered By: Sonja Montenegro Other Ambulatory Orders: Basic Metabolic Panel (Routine) Location: None Selected Ordered By: Sonja Montenegro Complete Blood Count w/Diff (Routine) Location: None Selected Ordered By: Sonja Montenegro Discharge Data Discharge Date/Time-TO BE ENTERED AT DEPARTURE: 03/17/22 14:26 DS: Summary Time Spent with Patient providing and/or coordinating discharge services: Greater than 30 minutes Status at Discharge Functional status at discharge: independent ambulation Overall status at discharge: patient is progressing back to baseline Mental Status: mental status grossly normal Speech and Movement: speech and movement normal Mood: congruent mood Affect: normal affect Exam Narrative Exam Narrative: General: Patient appears older than stated age, flattened affect but good eye contact. Alert and oriented to person, place and time. She is in no acute distress. HEENT: Normocephalic, coarsened facial features, eyes with pupils equal and react to light symmetrically, extraocular movement intact and sclera anicteric. Oropharynx with dry mucosa. Neck: Supple without JVD. Lungs: Fair aeration with coarse crackles over the bases on the left more than right and tubular breath sounds on the left with no dullness to percussion. Heart regular rate and rhythm with systolic murmur left sternal border 3/6 intensity. No gallops or rubs. Breast: Exam deferred. Abdomen: Scaphoid contour, soft and nontender to palpation with no palpable hepatosplenomegaly. Bowel sounds positive all quadrants. Genitalia/rectal: Exam deferred. Extremities: Without clubbing, cyanosis or grossly pitting edema. Decreased muscle mass with muscle atrophy over upper and lower extremities. Fair capillary refill. Skin: Normal color, warm and dry. Lymph: No gross generalized lymphadenopathy. Neuro: Cranial nerves II through XII gross intact, no focalizing motor deficits no tremors. Psych: Flattened affect with depressed mood with patient appearing apathetic. No abnormal thought processes. Remote and recent memory appear to be grossly intact. She is a vague historian but does not appear to have problems with memory. Psych Mental Status: mental status grossly normal Speech and Movement: speech and movement normal Mood: congruent mood Affect: normal affect DS: Data Vitals/I&O Vitals and I&O: Vital Signs Temperature 37.4 C 03/17/22 11:07 Temperature Source Tympanic 03/17/22 11:07 Pulse 62 03/17/22 11:07 Pulse Rhythm Regular 03/17/22 07:50 Pulse 106 H 03/16/22 22:10 Respiratory Rate 16 03/17/22 11:07 Respiratory Effort Non-Labored 03/17/22 07:50 Respiratory Depth Normal 03/17/22 07:50 Respiratory Pattern Normal 03/17/22 07:50 Blood Pressure 98/58 L 03/17/22 11:07 Blood Pressure Mean 63 03/16/22 22:00 Pulse Oximetry 96 03/17/22 11:07 Oxygen Delivery Method Room Air 03/17/22 11:07 Oxygen Flow Rate 0 03/17/22 11:07 Pain Level 0 03/17/22 11:07 Intake & Output 03/16/22 03/17/22 03/17/22 23:59 11:59 23:59 Intake Total 7.5 / 2126.5 1160 / 2160 1000 / 2160 Output Total 450 / 450 Balance 7.5 / 2126.5 710 / 1710 1000 / 1710 Weight 61.689 kg 64.6 kg Intake: IV 2127.5 / 2127.5 1160 / 2160 1000 / 2160 Oral 0 / 0 Output: Urine 450 / 450 Other: Urine Color Light Bertha Urine Appearance Clear Urine Odor Strong Voiding Methods Toilet Data Completed and Pending Labs on day of discharge: Labs from last 24 hours 03/17/22 03/17/22 03/17/22 06:30 06:30 06:30 WBC RBC Hgb Hct MCV MCH MCHC RDW Plt Count MPV Immature Gran % Neutrophils % Lymphocytes % Monocytes % Eosinophils % Basophils % Nucleated RBC % Absolute Neutrophils Absolute Lymphocytes Absolute Monocytes Absolute Eosinophils Absolute Basophils PT 10.5 INR 1.0 APTT Sodium Potassium Chloride Carbon Dioxide Anion Gap BUN Creatinine Est GFR (CKD-EPI 2020) Glucose Calcium Magnesium Total Bilirubin AST ALT Alkaline Phosphatase Troponin I Total Protein Albumin Lipase Vitamin B12 1205 H Folate 18.9 TSH Urine Color Urine Clarity Urine pH Ur Specific Dunlap Urine Protein Urine Ketones Urine Blood Urine Nitrite Urine Bilirubin Urine Urobilinogen Ur Leukocyte Esterase Urine RBC Urine WBC Ur Epithelial Cells Urine Crystals Urine Bacteria Urine Casts Urine Mucus Ur Culture Indicated? Urine Glucose Urine Opiates Screen Urine Methadone Screen Ur Barbiturates Screen Ur Tricyclics Screen Ur Amphetamines Screen U Benzodiazepines Scrn Urine Cocaine Screen Ur THC Screen Ethyl Alcohol COVID-19 Source SARS-CoV-2 (PCR) Influenza Type A (PCR) Influenza Type B (PCR) RSV (PCR) Add-On Test Request DONE 03/17/22 03/17/22 03/17/22 06:30 06:30 06:30 WBC 5.05 RBC 2.29 L Hgb 8.0 L D Hct 23.7 L MCV 104 H MCH 34.9 H MCHC 33.8 RDW 13.9 Plt Count 158 MPV 12.3 H Immature Gran % Neutrophils % Lymphocytes % Monocytes % Eosinophils % Basophils % Nucleated RBC % Absolute Neutrophils Absolute Lymphocytes Absolute Monocytes Absolute Eosinophils Absolute Basophils PT INR APTT Sodium 137 Potassium 3.5 Chloride 105 Carbon Dioxide 19.1 L Anion Gap 12.9 H BUN 19 H Creatinine 1.0 Est GFR (CKD-EPI 2020) 60.98 Glucose 210 H Calcium 7.8 L Magnesium 2.0 Total Bilirubin 0.4 AST 92 H ALT 131 H Alkaline Phosphatase 92 Troponin I 56 Total Protein 5.3 L Albumin 2.6 L Lipase Vitamin B12 Folate TSH Urine Color Urine Clarity Urine pH Ur Specific Dunlap Urine Protein Urine Ketones Urine Blood Urine Nitrite Urine Bilirubin Urine Urobilinogen Ur Leukocyte Esterase Urine RBC Urine WBC Ur Epithelial Cells Urine Crystals Urine Bacteria Urine Casts Urine Mucus Ur Culture Indicated? Urine Glucose Urine Opiates Screen Urine Methadone Screen Ur Barbiturates Screen Ur Tricyclics Screen Ur Amphetamines Screen U Benzodiazepines Scrn Urine Cocaine Screen Ur THC Screen Ethyl Alcohol COVID-19 Source SARS-CoV-2 (PCR) Influenza Type A (PCR) Influenza Type B (PCR) RSV (PCR) Add-On Test Request 03/16/22 03/16/22 03/16/22 23:00 18:09 17:21 WBC RBC Hgb Hct MCV MCH MCHC RDW Plt Count MPV Immature Gran % Neutrophils % Lymphocytes % Monocytes % Eosinophils % Basophils % Nucleated RBC % Absolute Neutrophils Absolute Lymphocytes Absolute Monocytes Absolute Eosinophils Absolute Basophils PT INR APTT Sodium Potassium Chloride Carbon Dioxide Anion Gap BUN Creatinine Est GFR (CKD-EPI 2020) Glucose Calcium Magnesium Total Bilirubin AST ALT Alkaline Phosphatase Troponin I Cancelled 98 H* Total Protein Albumin Lipase Vitamin B12 Folate TSH Urine Color Yellow Urine Clarity Cloudy Urine pH 7.0 Ur Specific Dunlap 1.025 Urine Protein 100 H Urine Ketones 15 H Urine Blood Negative Urine Nitrite Positive H Urine Bilirubin Moderate H Urine Urobilinogen 4.0 H Ur Leukocyte Esterase Trace H Urine RBC 0-2 Urine WBC 10-20 H Ur Epithelial Cells Few Urine Crystals Negative Urine Bacteria Many Urine Casts Negative Urine Mucus Trace Ur Culture Indicated? Yes Urine Glucose Negative Urine Opiates Screen Urine Methadone Screen Ur Barbiturates Screen Ur Tricyclics Screen Ur Amphetamines Screen U Benzodiazepines Scrn Urine Cocaine Screen Ur THC Screen Ethyl Alcohol COVID-19 Source SARS-CoV-2 (PCR) Influenza Type A (PCR) Influenza Type B (PCR) RSV (PCR) Add-On Test Request 03/16/22 03/16/22 03/16/22 17:21 15:48 15:48 WBC RBC Hgb Hct MCV MCH MCHC RDW Plt Count MPV Immature Gran % Neutrophils % Lymphocytes % Monocytes % Eosinophils % Basophils % Nucleated RBC % Absolute Neutrophils Absolute Lymphocytes Absolute Monocytes Absolute Eosinophils Absolute Basophils PT 9.9 INR 1.0 APTT 21.1 Sodium Potassium Chloride Carbon Dioxide Anion Gap BUN Creatinine Est GFR (CKD-EPI 2020) Glucose Calcium 9.4 Magnesium Total Bilirubin AST ALT Alkaline Phosphatase Troponin I Total Protein Albumin Lipase Vitamin B12 Folate TSH 1.90 Urine Color Urine Clarity Urine pH Ur Specific Dunlap Urine Protein Urine Ketones Urine Blood Urine Nitrite Urine Bilirubin Urine Urobilinogen Ur Leukocyte Esterase Urine RBC Urine WBC Ur Epithelial Cells Urine Crystals Urine Bacteria Urine Casts Urine Mucus Ur Culture Indicated? Urine Glucose Urine Opiates Screen Negative Urine Methadone Screen Negative Ur Barbiturates Screen Negative Ur Tricyclics Screen Negative Ur Amphetamines Screen Negative U Benzodiazepines Scrn Negative Urine Cocaine Screen Negative Ur THC Screen Negative Ethyl Alcohol COVID-19 Source SARS-CoV-2 (PCR) Influenza Type A (PCR) Influenza Type B (PCR) RSV (PCR) Add-On Test Request 03/16/22 03/16/22 03/16/22 15:48 15:48 15:35 WBC 9.80 RBC 2.98 L Hgb 10.8 L Hct 30.6 L MCV 103 H MCH 36.2 H MCHC 35.3 RDW 13.8 Plt Count 219 MPV 10.9 Immature Gran % 0.8 Neutrophils % 82.2 Lymphocytes % 6.8 Monocytes % 10.1 Eosinophils % 0.0 Basophils % 0.1 Nucleated RBC % 0.4 H Absolute Neutrophils 8.05 H Absolute Lymphocytes 0.67 L Absolute Monocytes 0.99 H Absolute Eosinophils 0.00 Absolute Basophils 0.01 PT INR APTT Sodium 134 L Potassium 3.2 L Chloride 97 L Carbon Dioxide 22.7 Anion Gap 14.3 H BUN 22 H Creatinine 1.1 H Est GFR (CKD-EPI 2020) 54.73 Glucose 159 H Calcium 9.3 Magnesium 1.7 L Total Bilirubin 0.8 AST 171 H ALT 202 H Alkaline Phosphatase 107 Troponin I 95 H* Total Protein 6.7 Albumin 3.4 Lipase 110 Vitamin B12 Folate TSH Urine Color Urine Clarity Urine pH Ur Specific [place] Urine Protein Urine Ketones Urine Blood Urine Nitrite Urine Bilirubin Urine Urobilinogen Ur Leukocyte Esterase Urine RBC Urine WBC Ur Epithelial Cells Urine Crystals Urine Bacteria Urine Casts Urine Mucus Ur Culture Indicated? Urine Glucose Urine Opiates Screen Urine Methadone Screen Ur Barbiturates Screen Ur Tricyclics Screen Ur Amphetamines Screen U Benzodiazepines Scrn Urine Cocaine Screen Ur THC Screen Ethyl Alcohol < 3.0 COVID-19 Source Nasopharynx SARS-CoV-2 (PCR) Negative Influenza Type A (PCR) Negative Influenza Type B (PCR) Negative RSV (PCR) Negative Add-On Test Request Preliminary micro results at discharge 03/16/22 17:21 Urine Culture - Preliminary Urine - Reflex from Ua Gram Negative Malachi PFSH All Active Problems (Updated 03/17/22 @ 06:43 by Seymour Santiago) Unexplained weight loss (Acute) Acute UTI (Acute) Acute dehydration (Acute) Electrolyte abnormality (Acute) Elevated troponin (Acute) Lumbar spinal stenosis (Acute) Lumbar radiculopathy (Acute) Lumbar spondylosis (Acute) Left hip pain (Acute) Patellofemoral arthritis of right knee (Acute) Lateral epicondylitis of left elbow (Acute) Biceps tendinitis of right shoulder (Acute) Lateral epicondylitis of right elbow (Acute) Hematoma of lower leg (Acute) Medical History Chronic rhinitis (03/21/17) Social History Smoking/Tobacco Use Status: Current every day Tobacco Type: cigarettes Smoking risk assessment performed?: Yes Alcohol Intake: current Alcohol Intake frequency: 3 or more drinks per day Alcohol type: wine Drug use: Never Substance use type: does not use Current gender identity: female Do you feel safe at home: Yes Do you feel safe in your relationship?: Yes Additional Social history: pt unable to assess privately
== END 2022-03-17 14:26 | disposition home or self-care (01) | DRG 690 ==
LOC: ER 21:18 → MS 22:23
PROVIDERS: Internal Medicine; Admitting Provider Family Medicine; Emergency Provider Emergency Medicine; PCP Nurse Practitioner Primary Care; Visit Provider Family Medicine
DX: N39.0 Urinary tract infection, site not specified (principal); E86.0 Dehydration; R63.4 Abnormal weight loss; R63.0 Anorexia; R11.0 Nausea; J44.9 Chronic obstructive pulmonary disease, unspecified; Z68.21 Body mass index [BMI] 21.0-21.9, adult; F10.90 Alcohol use, unspecified, uncomplicated; F17.210 Nicotine dependence, cigarettes, uncomplicated; Z79.899 Other long term (current) drug therapy; R05.3 Chronic cough; M48.061 Spinal stenosis, lumbar region without neurogenic claudication; R74.8 Abnormal levels of other serum enzymes; M47.26 Other spondylosis with radiculopathy, lumbar region; M17.11 Unilateral primary osteoarthritis, right knee; M25.551 Pain in right hip; M77.12 Lateral epicondylitis, left elbow; M77.11 Lateral epicondylitis, right elbow; M75.21 Bicipital tendinitis, right shoulder; E83.42 Hypomagnesemia; E87.6 Hypokalemia
CPT/HCPCS: 36415; 71275; 74177; 80053; 80307; 83690; 85027; 87077; 87637; 93005; 94640; 96361; 96365; 96366; 96368; 96372; 99285; 80320; 81003; 81015; 82310; 82607; 82746; 83735; 84443; 84484; 85025; 85610; 85730; 87086; 87186; 93010; 99223; 99239; J0696; J1650; J2543; J2930; J3475; J3480; J3490; J7620

== ENCOUNTER → 2022-06-21 09:09 | Outpatient (BNVA) | payer MEDICARE, BC, SELFPAY | PROVIDERS: PCP Nurse Practitioner Primary Care; Referring Provider Nurse Practitioner Primary Care; Visit Provider Nurse Practitioner Adult Health | DX: F03.918 Unspecified dementia, unspecified severity, with other behavioral disturbance (principal); F10.90 Alcohol use, unspecified, uncomplicated; R62.7 Adult failure to thrive; I10 Essential (primary) hypertension | CPT/HCPCS: 99204; 99215 ==

== ENCOUNTER 2022-07-04 03:10 | Outpatient (CLI) | payer MEDICARE, BC, SELFPAY ==
[2022-07-04 15:57] LABS: TSH (W/Ref FT4) 1.49 uIU/mL (0.36-3.74); Vitamin B12 863 pg/mL (193-986)
== END 2022-07-04 03:11 | disposition home or self-care (01) ==
LOC: LBO 03:10
PROVIDERS: PCP Nurse Practitioner Primary Care; Visit Provider Nurse Practitioner Adult Health
DX: R41.9 Unspecified symptoms and signs involving cognitive functions and awareness (principal); R63.4 Abnormal weight loss; F10.20 Alcohol dependence, uncomplicated
CPT/HCPCS: 36415; 82607; 84443

== ENCOUNTER → 2022-07-18 09:08 | Outpatient (BNVA) | payer MEDICARE, BC, SELFPAY | PROVIDERS: PCP Nurse Practitioner Primary Care; Referring Provider Nurse Practitioner Primary Care; Visit Provider Nurse Practitioner Adult Health | DX: F03.918 Unspecified dementia, unspecified severity, with other behavioral disturbance (principal); F10.20 Alcohol dependence, uncomplicated | CPT/HCPCS: 99213 ==

== ENCOUNTER → 2022-08-29 09:46 | Outpatient (BNVA) | payer MEDICARE, BC, SELFPAY | PROVIDERS: PCP Nurse Practitioner Primary Care; Referring Provider Nurse Practitioner Primary Care; Visit Provider Nurse Practitioner Adult Health | DX: R62.7 Adult failure to thrive (principal); G30.9 Alzheimer's disease, unspecified; F02.818 Dementia in other diseases classified elsewhere, unspecified severity, with other behavioral disturbance; F10.20 Alcohol dependence, uncomplicated; E51.2 Wernicke's encephalopathy; Z99.3 Dependence on wheelchair | CPT/HCPCS: 99204; 99215 ==